=== PATIENT | female | born 1950 | race Caucasian/White ===

== ENCOUNTER 2019-09-11 19:46 | Inpatient (IN) | payer MEDICARE ==
[2019-09-11] MEDS ORDERED: DUONEB 0.5-3 MG/3 ml Neb IH ONE ×3 (19:58→20:03)
[2019-09-11] MEDS ORDERED: Zofran 4 MG/2 ML VIAL IV ONE (20:02)
[2019-09-11] MEDS ORDERED: solu-MEDROL 125 MG IV ONE (20:02)
[2019-09-11] MEDS ORDERED: Zosyn 3.375GM/100 Ml D5W 3.375 GM/100 ML IVPB IV STA (20:02)
--- NOTE | 2019-09-11 20:02 | ERPHSYRPT ---
- History of Present Illness Time Seen by Provider: 09/11/19 19:57 Source: patient, family Exam Limitations: no limitations Physician History: pt is 69 yr old female with COPD who tried to quit smoking by using e cigs but had acute episode 3 weeks ago and completed ab but has gotten worse; no CP but is SOBreath and o2 sat 90 on RA; Timing/Duration: day(s) Activities at Onset: none Severity of Dyspnea-Max: moderate Severity of Dyspnea-Current: moderate Possible Cause: occasional episodes Modifying Factors: Improves With: albuterol nebulizer, oxygen, other ( exacerbation after vaping 3 weeks ago continues) Associated Symptoms: cough, wheezing International travel in last 2 weeks: No Allergies/Adverse Reactions: No Known Drug Allergies Allergy (Unverified 09/11/19 20:08) Home Medications: Amlodipine Besylate 10 mg PO DAILY 09/11/19 [History] Carvedilol 3.125 mg [Coreg 3.125 MG] 3.125 mg PO BID 09/11/19 [History] Famotidine 20 mg PO DAILY 09/11/19 [History] Ferrous Sulfate, Dried [Iron] 65 mg PO DAILY 09/11/19 [History] Gabapentin 300 mg PO TID 09/11/19 [History] Irbesartan/Hydrochlorothiazide [Irbesartan-Hctz 300-12.5 mg Tb] 1 tab PO DAILY 09/11/19 [History] Melatonin 10 mg PO HS 09/11/19 [History] Metformin HCl [Glucophage] 1,000 mg PO BID 09/11/19 [History] Simvastatin 40 mg PO DAILY 09/11/19 [History] Hx Influenza Vaccination/Date Given: Yes - Review of Systems Constitutional: Fever, No Chills Eyes: No Symptoms Ears, Nose, & Throat: No Symptoms Respiratory: Cough, Dyspnea, Wheezing Cardiac: Syncope (three weeks ago - had tx in hosp), No Chest Pain, No Edema Abdominal/Gastrointestinal: No Abdominal Pain, No Nausea, No Vomiting, No Diarrhea Genitourinary Symptoms: No Dysuria Musculoskeletal: No Back Pain, No Neck Pain Skin: No Rash Neurological: No Dizziness, No Focal Weakness, No Sensory Changes Psychological: No Symptoms Endocrine: No Symptoms All Other Systems: Reviewed and Negative - Past Medical History Pertinent Past Medical History: Yes Respiratory History: COPD Endocrine Medical History: Diabetes Type II - Nursing Vital Signs Nursing Vital Signs: Initial Vital Signs Temperature 98 F 09/11/19 19:48 Pulse Rate 83 09/11/19 19:48 Respiratory Rate 26 H 09/11/19 19:48 Blood Pressure 167/88 09/11/19 19:48 O2 Sat by Pulse Oximetry 92 L 09/11/19 19:48 Pain Scale Pain Intensity 0 - Physical Exam General Appearance: mild distress, alert Eye Exam: PERRL/EOMI Neck Exam: normal inspection, supple Respiratory Exam: airway intact, rhonchi, wheezing Cardiovascular/Chest Exam: normal heart sounds, regular rate/rhythm Abdominal/Gastrointestinal Exam: soft, No tenderness, No distention, No mass Extremity Exam: non-tender, normal range of motion, normal inspection, no calf tenderness, no pedal edema Peripheral Pulses Exam: carotid (R): 2+, carotid (L): 2+, femoral (R): 2+, femoral (L): 2+, dorsalis-pedis (R): 2+, dorsalis-pedis (L): 2+ Neurologic Exam: alert, oriented x 3, cooperative, leadership development consultant II-XII nml as tested, sensation nml, No motor deficits Skin Exam: normal color, warm, No dry SpO2 Interpretation: borderline oxygenation SpO2: 90 O2 Delivery: Room Air - Course Nursing assessment & vital signs reviewed: Yes EKG Interpreted by Me: Sinus Rhythm, NORMAL AXIS, NORMAL INTERVALS, Non- specific ST Changes - Radiology Exams Chest X-ray Interpretation: Reviewed by me, Infiltrates, Pneumonia, Other (RML/Rt fluid) Ordered Tests: Active Orders 24 hr Category Date Time Status Central Services Tech STAT Care 09/11/19 20:03 Active EKG-ER Only STAT Care 09/11/19 20:02 Active IV Insertion STAT Care 09/11/19 20:02 Active Oxygen-ED Only Nasal Cannula 2 lpm Care 09/11/19 20:02 Active CHEST 2 VIEWS (PA AND LAT) Stat Exams 09/11/19 20:03 Taken CBC W DIFF Stat Lab 09/11/19 20:24 Completed CMP Stat Lab 09/11/19 20:24 Completed D-DIMER QUANTITATIVE Stat Lab 09/11/19 20:24 Completed NT PRO BNP Stat Lab 09/11/19 20:24 Completed TROPONIN Q3H Lab 09/11/19 20:24 Completed TROPONIN Q3H Lab 09/11/19 23:15 Ordered TROPONIN Q3H Lab 09/12/19 02:15 Ordered TROPONIN Q3H Lab 09/12/19 05:15 Ordered TROPONIN Q3H Lab 09/12/19 08:15 Ordered UA W/RFX UR CULTURE Stat Lab 09/11/19 20:03 Uncollected Peak Expiratory Flow Rate ONCE RT 09/11/19 20:08 Active Respiratory Therapy Assessment DAILY RT 09/11/19 20:07 Active Medication Summary Generic Name Dose Route Start Last Admin Trade Name Freq PRN Reason Stop Dose Admin Sodium Chloride 1,000 mls @ 100 mls/hr 09/11/19 20:15 09/11/19 20:16 Sodium Chloride 0.9% 1000 Ml IV 10/11/19 20:14 100 mls/hr .Q10H ADA Administration Discontinued Medications Generic Name Dose Route Start Last Admin Trade Name Freq PRN Reason Stop Dose Admin Albuterol/Ipratropium Confirm 09/11/19 19:58 Duoneb 0.5-3 Mg/3 Ml Neb Administered 09/11/19 19:59 Dose 3 ml IH .STK-MED ONE Albuterol/Ipratropium 3 ml 09/11/19 20:03 09/11/19 20:04 Duoneb 0.5-3 Mg/3 Ml Neb IH 09/11/19 20:04 3 ml STAT ONE Administration Albuterol/Ipratropium 3 ml 09/11/19 20:02 09/11/19 20:06 Duoneb 0.5-3 Mg/3 Ml Neb IH 09/11/19 20:03 Not Given STAT ONE Piperacillin Sod/Tazobactam Sod 3.375 gm in 100 mls @ 200 mls/hr 09/11/19 20: 02 09/11/19 20:44 Zosyn 3.375gm/100 Ml D5w IV 09/11/19 20:31 Infused STAT STA Infusion Piperacillin Sod/Tazobactam Sod Confirm 09/11/19 20:09 Zosyn 3.375gm/100 Ml D5w Administered 09/11/19 20:10 Dose 3.375 gm in 100 mls @ ud IV .STK-MED ONE Ceftriaxone Sodium/Dextrose 1 g in 50 mls @ 100 mls/hr 09/11/19 21:15 21:20 Rocephin 1 Gm-D5w 50 Ml Bag IV 09/11/19 21:44 100 mls/hr STAT STA 100 mls/hr Administration Ceftriaxone Sodium/Dextrose Confirm 09/11/19 21:18 Rocephin 1 Gm-D5w 50 Ml Bag Administered 09/11/19 21:19 Dose 1 g in 50 mls @ ud IV .STK-MED ONE Methylprednisolone Sodium Succinate 125 mg 09/11/19 20:02 09/11/19 20:17 Solu-Medrol 125 Mg IV 09/11/19 20:03 125 mg STAT ONE Administration Methylprednisolone Sodium Succinate Confirm 09/11/19 20:08 Solu-Medrol 125 Mg Administered 09/11/19 20:09 Dose 125 mg .ROUTE .STK-MED ONE Ondansetron HCl 4 mg 09/11/19 20:02 09/11/19 20:17 Zofran 4 Mg/2 Ml Vial IV 09/11/19 20:03 4 mg STAT ONE Administration Ondansetron HCl Confirm 09/11/19 20:08 Zofran 4 Mg/2 Ml Vial Administered 09/11/19 20:09 Dose 4 mg .ROUTE .STK-MED ONE Lab/Rad Data: Laboratory Result Diagrams 09/11/19 20:24 09/11/19 20:24 Laboratory Results 09/11/19 09/11/19 09/11/19 Range/Units 20:24 20:24 20:24 WBC (4.0-10.5) K/mm3 RBC (4.1-5.4) M/mm3 Hgb (12.0-16.0) gm/dl Hct (35-47) % MCV (78-100) fl MCH (26-32) pg MCHC (32-36) g/dl RDW (11.5-14.0) % Plt Count (150-450) K/mm3 MPV (7.5-11.0) fl Gran % (36.0-66.0) % Eos # (Auto) (0-0.5) Absolute Lymphs (auto) (1.0-4.6) Absolute Monos (auto) (0.0-1.3) Lymphocytes % (24.0-44.0) % Monocytes % (0.0-12.0) % Eosinophils % (0.00-5.0) % Basophils % (0.0-0.4) % Absolute Granulocytes (1.4-6.9) Basophils # (0-0.4) D-Dimer 420 (215-500) ng/mL Sodium (137-145) mmol/L Potassium (3.5-5.1) mmol/L Chloride (98-107) mmol/L Carbon Dioxide (22-30) mmol/L Anion Gap (5-15) MEQ/L BUN (7-17) mg/dL Creatinine (0.52-1.04) mg/dL Estimated GFR ML/MIN Glucose (74-106) mg/dL Calcium (8.4-10.2) mg/dL Total Bilirubin (0.2-1.3) mg/dL AST (14-36) U/L ALT (0-35) U/L Alkaline Phosphatase (38-126) U/L Troponin I < 0.012 (0.000-0.034) ng/mL NT-Pro-B Natriuret Pep (0-900) pg/mL Serum Total Protein (6.3-8.2) g/dL Albumin (3.5-5.0) g/dL Influenza Type A Ag NEGATIVE (NEGATIVE) Influenza Type B Ag NEGATIVE (NEGATIVE) RSV (PCR) NEGATIVE (Negative) Group A Strep Antibody NEGATIVE (NEGATIVE) 09/11/19 09/11/19 Range/Units 20:24 20:24 WBC 8.7 (4.0-10.5) K/mm3 RBC 4.47 (4.1-5.4) M/mm3 Hgb 13.1 (12.0-16.0) gm/dl Hct 40.4 (35-47) % MCV 90.4 (78-100) fl MCH 29.3 (26-32) pg MCHC 32.4 (32-36) g/dl RDW 14.0 (11.5-14.0) % Plt Count 443 (150-450) K/mm3 MPV 10.3 (7.5-11.0) fl Gran % 58.0 (36.0-66.0) % Eos # (Auto) 1.11 H (0-0.5) Absolute Lymphs (auto) 1.72 (1.0-4.6) Absolute Monos (auto) 0.79 (0.0-1.3) Lymphocytes % 19.7 L (24.0-44.0) % Monocytes % 9.1 (0.0-12.0) % Eosinophils % 12.7 H (0.00-5.0) % Basophils % 0.5 (0.0-0.4) % Absolute Granulocytes 5.06 (1.4-6.9) Basophils # 0.04 (0-0.4) D-Dimer (215-500) ng/mL Sodium 134 L (137-145) mmol/L Potassium 4.3 (3.5-5.1) mmol/L Chloride 96 L (98-107) mmol/L Carbon Dioxide 30 (22-30) mmol/L Anion Gap 12.3 (5-15) MEQ/L BUN 14 (7-17) mg/dL Creatinine 0.72 (0.52-1.04) mg/dL Estimated GFR > 60.0 ML/MIN Glucose 193 H (74-106) mg/dL Calcium 9.5 (8.4-10.2) mg/dL Total Bilirubin 0.50 (0.2-1.3) mg/dL AST 18 (14-36) U/L ALT 12 (0-35) U/L Alkaline Phosphatase 87 (38-126) U/L Troponin I (0.000-0.034) ng/mL NT-Pro-B Natriuret Pep 99.5 (0-900) pg/mL Serum Total Protein 8.2 (6.3-8.2) g/dL Albumin 4.7 (3.5-5.0) g/dL Influenza Type A Ag (NEGATIVE) Influenza Type B Ag (NEGATIVE) RSV (PCR) (Negative) Group A Strep Antibody (NEGATIVE) - Progress Progress: improved, re-examined Air Movement: good Progress Note: 09/11/19 22:33 discussed with pt and family and Dr. Kay covering and all agree best to place pt on obs and have O2 and resp Tx and AB in house ; Blood Culture(s) Obtained: No Antibiotics given: Yes Discussed with : Louis Will see patient in: hospital (observation) Counseled pt/family regarding: lab results, diagnosis, need for follow-up, rad results - Departure Departure Disposition: Observation Clinical Impression: RML pneumonia with effusion, Acute exacerbation of chronic obstructive pulmonary disease (COPD) Condition: Good Critical Care Time: No Referrals: GUERRERO WOODARD [Primary Care Provider] - Instructions: Chronic Obstructive Pulmonary Disease
[2019-09-11] MEDS ORDERED: Zofran 4 MG/2 ML VIAL ONE (20:08)
[2019-09-11] MEDS ORDERED: Sodium Chloride 0.9% 1000 ML 1,000 ML ONE (20:08)
[2019-09-11] MEDS ORDERED: solu-MEDROL 125 MG ONE (20:08)
[2019-09-11] MEDS ORDERED: Zosyn 3.375GM/100 Ml D5W 3.375 GM/100 ML IVPB IV ONE (20:09)
[2019-09-11] MEDS ORDERED: Sodium Chloride 0.9% 1000 ML 1,000 ML IV SCH (20:15)
[2019-09-11 20:23] LABS: Absolute Neutrophil Ct (ANC) 5.06 (1.4-6.9); BASOPHIL % 0.5 % (0.0-0.4); Basophil (Absolute #) 0.04 (0-0.4); Eosinophil % 12.7 % (0.00-5.0); Eosinophil (Absolute #) 1.11 (0-0.5); Hematocrit 40.4 % (35-47); Hemoglobin 13.1 gm/dl (12.0-16.0); Lymphocyte (Absolute #) 1.72 (1.0-4.6); Lymphocytes % 19.7 % (24.0-44.0); Mean Cell Volume 90.4 fl (78-100); Mean Corpuscular Hemoglobin 29.3 pg (26-32); Mean Corpuscular Hgb Concent. 32.4 g/dl (32-36); Mean Platelet Volume 10.3 fl (7.5-11.0); Monocyte (Absolute #) 0.79 (0.0-1.3); Monocytes % 9.1 % (0.0-12.0); Platelet Count 443 K/mm3 (150-450); Red Blood Count 4.47 M/mm3 (4.1-5.4); White Blood Count 8.7 K/mm3 (4.0-10.5)
[2019-09-11 20:47] LABS: ALBUMIN 4.7 g/dL (3.5-5.0); ALKALINE PHOSPHATASE 87 U/L (38-126); ANION GAP 12.3 MEQ/L (5-15); BLOOD UREA NITROGEN 14 mg/dL (7-17); CHLORIDE 96 mmol/L (98-107); Calcium 9.5 mg/dL (8.4-10.2); Carbon Dioxide 30 mmol/L (22-30); Creatinine 1 0.72 mg/dL (0.52-1.04); Glucose 193 mg/dL (74-106); NT PRO BNP 99.5 pg/mL (0-900); Potassium 4.3 mmol/L (3.5-5.1); SGOT/AST 18 U/L (14-36); SGPT/ALT 12 U/L (0-35); SODIUM 134 mmol/L (137-145); Total Protein 8.2 g/dL (6.3-8.2)
[2019-09-11] MEDS ORDERED: ROCEPHIN 1 Gm-D5w 50 ml Bag** 1 G/50 ML IVPB IV STA (21:15)
[2019-09-11] MEDS ORDERED: ROCEPHIN 1 Gm-D5w 50 ml Bag** 1 G/50 ML IVPB IV ONE (21:18)
[2019-09-11 21:33] LABS: Group A Strep NEGATIVE (NEGATIVE); INFLUENZA A NEGATIVE (NEGATIVE); INFLUENZA B NEGATIVE (NEGATIVE); RESPIRATORY SYNCTIAL VIRUS NEGATIVE (Negative)
[2019-09-11 22:58] LABS: Appearance CLEAR (CLEAR); Bilirubin NEGATIVE (NEGATIVE); Blood NEGATIVE Ery/ul (0-5); Glucose NEGATIVE (NEGATIVE); Ketones NEGATIVE (NEGATIVE); Leukocyte Esterase NEGATIVE (NEGATIVE); Nitrite NEGATIVE (NEGATIVE); Protein,Urine Dip NEGATIVE (Negative); Specific Gravity 1.009 (1.005-1.025); Urobilinogen NEGATIVE mg/dL (0-1)
[2019-09-11] MEDS ORDERED: Zofran 4 MG/2 ML VIAL IV PRN (23:16)
[2019-09-11] MEDS ORDERED: NovoLIN R SQ PRN (23:16)
[2019-09-11] MEDS: DUONEB 0.5-3 MG/3 ml Neb IH SCH (23:22)
[2019-09-12] MEDS ORDERED: Zosyn 3.375GM/100 Ml D5W 3.375 GM/100 ML IVPB IV SCH
[2019-09-12] MEDS ORDERED: solu-MEDROL 125 MG IV SCH
[2019-09-12] MEDS: Zosyn 3.375GM/100 Ml D5W 3.375 GM/100 ML IVPB IV SCH ×4 (02:31→19:52)
[2019-09-12] MEDS: solu-MEDROL 125 MG IV SCH ×4 (02:31→19:51)
[2019-09-12] MEDS: DUONEB 0.5-3 MG/3 ml Neb IH SCH ×6 (03:31→23:19)
[2019-09-12 04:19] LABS: ALBUMIN 4.4 g/dL (3.5-5.0); ALKALINE PHOSPHATASE 88 U/L (38-126); ANION GAP 12.1 MEQ/L (5-15); BLOOD UREA NITROGEN 14 mg/dL (7-17); CHLORIDE 98 mmol/L (98-107); Calcium 9.2 mg/dL (8.4-10.2); Carbon Dioxide 30 mmol/L (22-30); Creatinine 1 0.58 mg/dL (0.52-1.04); Glucose 276 mg/dL (74-106); Potassium 4.5 mmol/L (3.5-5.1); SGOT/AST 18 U/L (14-36); SGPT/ALT 13 U/L (0-35); SODIUM 135 mmol/L (137-145); Total Protein 7.8 g/dL (6.3-8.2)
[2019-09-12 04:31] LABS: Hematocrit 40.2 % (35-47); Hemoglobin 12.9 gm/dl (12.0-16.0); Mean Cell Volume 90.5 fl (78-100); Mean Corpuscular Hemoglobin 29.1 pg (26-32); Mean Corpuscular Hgb Concent. 32.1 g/dl (32-36); Mean Platelet Volume 10.3 fl (7.5-11.0); Platelet Count 406 K/mm3 (150-450); Red Blood Count 4.44 M/mm3 (4.1-5.4); Red Cell Distribution Width 13.8 % (11.5-14.0); White Blood Count 6.5 K/mm3 (4.0-10.5)
--- NOTE | 2019-09-12 08:05 | XRAY ---
Indication: Short of breath. Comparison: August 23, 2019. PA/lateral chest unchanged again appearing hyperinflated with right midlung subsegmental atelectasis/scarring, focal eventration right hemidiaphragm, and left apical calcified granuloma. Remaining heart and lungs normal. No new/acute findings.
[2019-09-12] MEDS: HUMULIN R SQ PRN ×4 (08:29→22:21)
[2019-09-12] MEDS ORDERED: MEDICATION INTERVENTION PO SCH (10:30)
[2019-09-12] MEDS: FEOSOL 325 MG PO SCH ×2 (11:47→22:19)
[2019-09-12] MEDS: NEURONTIN 300 MG PO SCH ×3 (11:47→22:20)
[2019-09-12] MEDS: Glucophage 500 MG PO SCH ×2 (11:47→17:40)
[2019-09-12] MEDS: Coreg 3.125 MG PO SCH ×2 (11:47→22:18)
[2019-09-12] MEDS: NORVASC 5 MG PO SCH (11:48)
[2019-09-12] MEDS: Pepcid 20 MG PO SCH (11:48)
[2019-09-12] MEDS: ECOTRIN 81 MG PO SCH (11:48)
[2019-09-12] MEDS: ZOCOR 20MG PO SCH (11:48)
--- NOTE | 2019-09-12 13:06 | PCM.HP ---
History of Present Illness - Chief Complaint Chief Complaint: RML PNEUMONIA WITH EFFUSION REQUIRING OXYGEN, COPD EXAC, VAPING INJURY Date: 09/12/19 History of Present Illness: is a 69 year old female that is seen this am following ER admission for acute on chronic COPD exacerbation pleural effusion, pneumonia complicated by e cigarettes. Patient was recently in [facility] for pneumonia and resp distress. She was given steroid shot and started on antibiotics and discharged to home from ER. Patient had follow up with Dr Woodruff who also treated patient for similar symptoms. Patient then was seen by me on Friday. She was given a duoneb in clinic and a steroid shot. I ordered a nebulizer for patient however the script for the duonebs was not at pharmacy. Patient reports she did not realize this till 5pm Friday evening. Patient reports that she got up to go to the bathroom at home and became so short of breath that she had her bring her to ER. Patient reports she has been feeling better since admission. Patient reports that she has been using the e cigarettes for at least the past 6 months but states that she is through with them because of how sick she has been. She reports that she was using the albuterol inhaler but she still was short of breath. Patient denies routine meds at home for COPD. Patient did not report having a PFT test in the past. Patient denies chest pain. She had no other complaints at this time. - Review of Systems Constitutional: No Fever, No Chills Eyes: No Symptoms Ears, Nose, & Throat: No Symptoms Respiratory: Cough, Short Of Breath, Wheezing Cardiac: Edema (R ankle chronically), No Chest Pain Abdominal/Gastrointestinal: No Abdominal Pain, No Nausea, No Vomiting, No Diarrhea, No Constipation Genitourinary Symptoms: No Dysuria Musculoskeletal: No Symptoms Skin: No Symptoms Neurological: No Symptoms Psychological: No Symptoms Medications & Allergies Home Medications: Home Medication List Amlodipine Besylate 10 mg PO DAILY 09/11/19 [History Confirmed 09/11/19] Aspirin EC 81 mg [Ecotrin 81 mg] 81 mg PO DAILY 09/11/19 [History Confirmed 09/12/19] Carvedilol 3.125 mg [Coreg 3.125 MG] 3.125 mg PO BID 09/11/19 [History Confirmed 09/11/19] Famotidine 20 mg PO DAILY 09/11/19 [History Confirmed 09/11/19] Ferrous Sulfate, Dried [Iron] 65 mg PO BID 09/11/19 [History Confirmed 09/11/19] Gabapentin 300 mg PO TID 09/11/19 [History Confirmed 09/11/19] Guaifenesin/Codeine Phos [Guaiatussin AC Liquid] 10 ml PO HS 09/11/19 [History Confirmed 09/11/19] Irbesartan/Hydrochlorothiazide [Irbesartan-Hctz 300-12.5 mg Tb] 1 tab PO HS [History Confirmed 09/12/19] Melatonin 10 mg PO HS 09/11/19 [History Confirmed 09/11/19] Metformin HCl [Glucophage] 1,000 mg PO BIDWMEALS 09/11/19 [History Confirmed ] Simvastatin 40 mg PO DAILY 09/11/19 [History Confirmed 09/11/19] Allergies/Adverse Reactions: Allergies Allergy/AdvReac Type Severity Reaction Status Date / Time No Known Drug Allergies Allergy Unverified 09/11/19 20:08 - Past Medical History Past Medical History: Yes Neurological History: Peripheral Neuropathy ENT History: No Pertinent History Cardiac History: High Cholesterol, Hypertension, Other Respiratory History: COPD Endocrine Medical History: Diabetes Type II Musculoskelatal History: No Pertinent History GI Medical History: GERD History: No Pertinent History Pyscho-Social History: No Pertinent History Reproductive Disorders: No Pertinent History Comment: anemia - Female History Are you now?: No - Past Surgical History Past Surgical History: Yes Neuro Surgical History: No Pertinent History Cardiac History: No Pertinent History Respiratory Surgery: No Pertinent History GI Surgical History: No Pertinent History Genitourinary Surgical Hx: No Pertinent History Musculskeletal Surgical Hx: Orthopedic Surgery Female Surgical History: No Pertinent History Other Surgical History: plates in rt ankle - Social History Smoking Status: Former smoker Exposure to second hand smoke: No Alcohol: Weekly Drug Use: none - Physical Exam Vital Signs: Vital Signs - 24 hr Temp Pulse Resp BP Pulse Ox 09/12/19 11:13 87 18 93 L 09/12/19 07:19 97.5 F 85 18 143/82 93 L 09/12/19 07:11 74 18 95 09/12/19 04:00 97.2 F 88 18 165/77 91 L 09/12/19 03:33 88 23 91 L 09/11/19 23:25 72 20 93 L 09/11/19 23:21 97.9 F 72 18 143/82 93 L 09/11/19 22:52 72 18 141/86 96 09/11/19 22:37 90 L 09/11/19 22:00 76 18 124/82 96 09/11/19 20:24 76 20 126/94 95 09/11/19 20:08 81 22 97 09/11/19 19:48 98 F 83 18 167/88 99 General Appearance: mild distress Neurologic Exam: alert, oriented x 3, cooperative, normal mood/affect Eye Exam: eyes nml inspection Ears, Nose, Throat Exam: moist mucous membranes Neck Exam: normal inspection Respiratory Exam: diminished breath sounds, crackles/rales, wheezing, No normal breath sounds, No lungs clear Cardiovascular Exam: regular rate/rhythm, normal heart sounds, edema (R ankle chonic in nature +1 non pitting), No murmur, No friction rub, No gallop Gastrointestinal/Abdomen Exam: soft, normal bowel sounds, No tenderness, No distention Pelvic Exam: not done Rectal Exam: not done Extremity Exam: normal inspection, pedal edema (R ankle) Skin Exam: normal color, warm, dry, No rash Results - Labs Lab/Micro Results: Accuchecks Date 09/12/19 Date 09/12/19 Time 08:02 Time 08:02 Accucheck Value: 241 Lab Results-Last 24 Hours 09/11/19 09/11/19 09/11/19 Range/Units 20:24 20:24 20:24 WBC 8.7 (4.0-10.5) K/mm3 RBC 4.47 (4.1-5.4) M/mm3 Hgb 13.1 (12.0-16.0) gm/dl Hct 40.4 (35-47) % MCV 90.4 (78-100) fl MCH 29.3 (26-32) pg MCHC 32.4 (32-36) g/dl RDW 14.0 (11.5-14.0) % Plt Count 443 (150-450) K/mm3 MPV 10.3 (7.5-11.0) fl Gran % 58.0 (36.0-66.0) % Eos # (Auto) 1.11 H (0-0.5) Absolute Lymphs (auto) 1.72 (1.0-4.6) Absolute Monos (auto) 0.79 (0.0-1.3) Lymphocytes % 19.7 L (24.0-44.0) % Monocytes % 9.1 (0.0-12.0) % Eosinophils % 12.7 H (0.00-5.0) % Basophils % 0.5 (0.0-0.4) % Absolute Granulocytes 5.06 (1.4-6.9) Basophils # 0.04 (0-0.4) D-Dimer 420 (215-500) ng/mL Sodium 134 L (137-145) mmol/L Potassium 4.3 (3.5-5.1) mmol/L Chloride 96 L (98-107) mmol/L Carbon Dioxide 30 (22-30) mmol/L Anion Gap 12.3 (5-15) MEQ/L BUN 14 (7-17) mg/dL Creatinine 0.72 (0.52-1.04) mg/dL Estimated GFR > 60.0 ML/MIN Glucose 193 H (74-106) mg/dL Hemoglobin A1c (4.5-6.0) % Calcium 9.5 (8.4-10.2) mg/dL Total Bilirubin 0.50 (0.2-1.3) mg/dL AST 18 (14-36) U/L ALT 12 (0-35) U/L Alkaline Phosphatase 87 (38-126) U/L Troponin I (0.000-0.034) ng/mL NT-Pro-B Natriuret Pep 99.5 (0-900) pg/mL Serum Total Protein 8.2 (6.3-8.2) g/dL Albumin 4.7 (3.5-5.0) g/dL Urine Color (YELLOW) Urine Appearance (CLEAR) Urine pH (5-6) Ur Specific [place] (1.005-1.025) Urine Protein (Negative) Urine Ketones (NEGATIVE) Urine Blood (0-5) Monster/ul Urine Nitrite (NEGATIVE) Urine Bilirubin (NEGATIVE) Urine Urobilinogen (0-1) mg/dL Ur Leukocyte Esterase (NEGATIVE) Urine WBC (Auto) (0-5) /HPF Urine RBC (Auto) (0-2) /HPF U Epithel Cells (Auto) (FEW) /HPF Urine Bacteria (Auto) (NEGATIVE) /HPF Urine Culture Reflexed (NO) Urine Glucose (NEGATIVE) mg/dL Influenza Type A Ag (NEGATIVE) Influenza Type B Ag (NEGATIVE) RSV (PCR) (Negative) Group A Strep Antibody (NEGATIVE) 09/11/19 09/11/19 09/11/19 Range/Units 20:24 20:24 22:52 WBC (4.0-10.5) K/mm3 RBC (4.1-5.4) M/mm3 Hgb (12.0-16.0) gm/dl Hct (35-47) % MCV (78-100) fl MCH (26-32) pg MCHC (32-36) g/dl RDW (11.5-14.0) % Plt Count (150-450) K/mm3 MPV (7.5-11.0) fl Gran % (36.0-66.0) % Eos # (Auto) (0-0.5) Absolute Lymphs (auto) (1.0-4.6) Absolute Monos (auto) (0.0-1.3) Lymphocytes % (24.0-44.0) % Monocytes % (0.0-12.0) % Eosinophils % (0.00-5.0) % Basophils % (0.0-0.4) % Absolute Granulocytes (1.4-6.9) Basophils # (0-0.4) D-Dimer (215-500) ng/mL Sodium (137-145) mmol/L Potassium (3.5-5.1) mmol/L Chloride (98-107) mmol/L Carbon Dioxide (22-30) mmol/L Anion Gap (5-15) MEQ/L BUN (7-17) mg/dL Creatinine (0.52-1.04) mg/dL Estimated GFR ML/MIN Glucose (74-106) mg/dL Hemoglobin A1c (4.5-6.0) % Calcium (8.4-10.2) mg/dL Total Bilirubin (0.2-1.3) mg/dL AST (14-36) U/L ALT (0-35) U/L Alkaline Phosphatase (38-126) U/L Troponin I < 0.012 (0.000-0.034) ng/mL NT-Pro-B Natriuret Pep (0-900) pg/mL Serum Total Protein (6.3-8.2) g/dL Albumin (3.5-5.0) g/dL Urine Color YELLOW (YELLOW) Urine Appearance CLEAR (CLEAR) Urine pH 7.0 (5-6) Ur Specific [place] 1.009 (1.005-1.025) Urine Protein NEGATIVE (Negative) Urine Ketones NEGATIVE (NEGATIVE) Urine Blood NEGATIVE (0-5) Monster/ul Urine Nitrite NEGATIVE (NEGATIVE) Urine Bilirubin NEGATIVE (NEGATIVE) Urine Urobilinogen NEGATIVE (0-1) mg/dL Ur Leukocyte Esterase NEGATIVE (NEGATIVE) Urine WBC (Auto) NONE (0-5) /HPF Urine RBC (Auto) NONE (0-2) /HPF U Epithel Cells (Auto) NONE (FEW) /HPF Urine Bacteria (Auto) NONE (NEGATIVE) /HPF Urine Culture Reflexed NO (NO) Urine Glucose NEGATIVE (NEGATIVE) mg/dL Influenza Type A Ag NEGATIVE (NEGATIVE) Influenza Type B Ag NEGATIVE (NEGATIVE) RSV (PCR) NEGATIVE (Negative) Group A Strep Antibody NEGATIVE (NEGATIVE) 09/11/19 09/12/19 09/12/19 Range/Units 23:43 04:02 04:02 WBC 6.5 (4.0-10.5) K/mm3 RBC 4.44 (4.1-5.4) M/mm3 Hgb 12.9 (12.0-16.0) gm/dl Hct 40.2 (35-47) % MCV 90.5 (78-100) fl MCH 29.1 (26-32) pg MCHC 32.1 (32-36) g/dl RDW 13.8 (11.5-14.0) % Plt Count 406 (150-450) K/mm3 MPV 10.3 (7.5-11.0) fl Gran % (36.0-66.0) % Eos # (Auto) (0-0.5) Absolute Lymphs (auto) (1.0-4.6) Absolute Monos (auto) (0.0-1.3) Lymphocytes % (24.0-44.0) % Monocytes % (0.0-12.0) % Eosinophils % (0.00-5.0) % Basophils % (0.0-0.4) % Absolute Granulocytes (1.4-6.9) Basophils # (0-0.4) D-Dimer (215-500) ng/mL Sodium (137-145) mmol/L Potassium (3.5-5.1) mmol/L Chloride (98-107) mmol/L Carbon Dioxide (22-30) mmol/L Anion Gap (5-15) MEQ/L BUN (7-17) mg/dL Creatinine (0.52-1.04) mg/dL Estimated GFR ML/MIN Glucose (74-106) mg/dL Hemoglobin A1c (4.5-6.0) % Calcium (8.4-10.2) mg/dL Total Bilirubin (0.2-1.3) mg/dL AST (14-36) U/L ALT (0-35) U/L Alkaline Phosphatase (38-126) U/L Troponin I < 0.012 < 0.012 (0.000-0.034) ng/mL NT-Pro-B Natriuret Pep (0-900) pg/mL Serum Total Protein (6.3-8.2) g/dL Albumin (3.5-5.0) g/dL Urine Color (YELLOW) Urine Appearance (CLEAR) Urine pH (5-6) Ur Specific [place] (1.005-1.025) Urine Protein (Negative) Urine Ketones (NEGATIVE) Urine Blood (0-5) Monster/ul Urine Nitrite (NEGATIVE) Urine Bilirubin (NEGATIVE) Urine Urobilinogen (0-1) mg/dL Ur Leukocyte Esterase (NEGATIVE) Urine WBC (Auto) (0-5) /HPF Urine RBC (Auto) (0-2) /HPF U Epithel Cells (Auto) (FEW) /HPF Urine Bacteria (Auto) (NEGATIVE) /HPF Urine Culture Reflexed (NO) Urine Glucose (NEGATIVE) mg/dL Influenza Type A Ag (NEGATIVE) Influenza Type B Ag (NEGATIVE) RSV (PCR) (Negative) Group A Strep Antibody (NEGATIVE) 09/12/19 09/12/19 09/12/19 Range/Units 04:02 07:20 10:00 WBC (4.0-10.5) K/mm3 RBC (4.1-5.4) M/mm3 Hgb (12.0-16.0) gm/dl Hct (35-47) % MCV (78-100) fl MCH (26-32) pg MCHC (32-36) g/dl RDW (11.5-14.0) % Plt Count (150-450) K/mm3 MPV (7.5-11.0) fl Gran % (36.0-66.0) % Eos # (Auto) (0-0.5) Absolute Lymphs (auto) (1.0-4.6) Absolute Monos (auto) (0.0-1.3) Lymphocytes % (24.0-44.0) % Monocytes % (0.0-12.0) % Eosinophils % (0.00-5.0) % Basophils % (0.0-0.4) % Absolute Granulocytes (1.4-6.9) Basophils # (0-0.4) D-Dimer (215-500) ng/mL Sodium 135 L (137-145) mmol/L Potassium 4.5 (3.5-5.1) mmol/L Chloride 98 (98-107) mmol/L Carbon Dioxide 30 (22-30) mmol/L Anion Gap 12.1 (5-15) MEQ/L BUN 14 (7-17) mg/dL Creatinine 0.58 (0.52-1.04) mg/dL Estimated GFR > 60.0 ML/MIN Glucose 276 H (74-106) mg/dL Hemoglobin A1c (4.5-6.0) % Calcium 9.2 (8.4-10.2) mg/dL Total Bilirubin 0.50 (0.2-1.3) mg/dL AST 18 (14-36) U/L ALT 13 (0-35) U/L Alkaline Phosphatase 88 (38-126) U/L Troponin I < 0.012 < 0.012 (0.000-0.034) ng/mL NT-Pro-B Natriuret Pep (0-900) pg/mL Serum Total Protein 7.8 (6.3-8.2) g/dL Albumin 4.4 (3.5-5.0) g/dL Urine Color (YELLOW) Urine Appearance (CLEAR) Urine pH (5-6) Ur Specific [place] (1.005-1.025) Urine Protein (Negative) Urine Ketones (NEGATIVE) Urine Blood (0-5) Monster/ul Urine Nitrite (NEGATIVE) Urine Bilirubin (NEGATIVE) Urine Urobilinogen (0-1) mg/dL Ur Leukocyte Esterase (NEGATIVE) Urine WBC (Auto) (0-5) /HPF Urine RBC (Auto) (0-2) /HPF U Epithel Cells (Auto) (FEW) /HPF Urine Bacteria (Auto) (NEGATIVE) /HPF Urine Culture Reflexed (NO) Urine Glucose (NEGATIVE) mg/dL Influenza Type A Ag (NEGATIVE) Influenza Type B Ag (NEGATIVE) RSV (PCR) (Negative) Group A Strep Antibody (NEGATIVE) 09/12/19 Range/Units 10:15 WBC (4.0-10.5) K/mm3 RBC (4.1-5.4) M/mm3 Hgb (12.0-16.0) gm/dl Hct (35-47) % MCV (78-100) fl MCH (26-32) pg MCHC (32-36) g/dl RDW (11.5-14.0) % Plt Count (150-450) K/mm3 MPV (7.5-11.0) fl Gran % (36.0-66.0) % Eos # (Auto) (0-0.5) Absolute Lymphs (auto) (1.0-4.6) Absolute Monos (auto) (0.0-1.3) Lymphocytes % (24.0-44.0) % Monocytes % (0.0-12.0) % Eosinophils % (0.00-5.0) % Basophils % (0.0-0.4) % Absolute Granulocytes (1.4-6.9) Basophils # (0-0.4) D-Dimer (215-500) ng/mL Sodium (137-145) mmol/L Potassium (3.5-5.1) mmol/L Chloride (98-107) mmol/L Carbon Dioxide (22-30) mmol/L Anion Gap (5-15) MEQ/L BUN (7-17) mg/dL Creatinine (0.52-1.04) mg/dL Estimated GFR ML/MIN Glucose (74-106) mg/dL Hemoglobin A1c 6.89 H (4.5-6.0) % Calcium (8.4-10.2) mg/dL Total Bilirubin (0.2-1.3) mg/dL AST (14-36) U/L ALT (0-35) U/L Alkaline Phosphatase (38-126) U/L Troponin I (0.000-0.034) ng/mL NT-Pro-B Natriuret Pep (0-900) pg/mL Serum Total Protein (6.3-8.2) g/dL Albumin (3.5-5.0) g/dL Urine Color (YELLOW) Urine Appearance (CLEAR) Urine pH (5-6) Ur Specific [place] (1.005-1.025) Urine Protein (Negative) Urine Ketones (NEGATIVE) Urine Blood (0-5) Monster/ul Urine Nitrite (NEGATIVE) Urine Bilirubin (NEGATIVE) Urine Urobilinogen (0-1) mg/dL Ur Leukocyte Esterase (NEGATIVE) Urine WBC (Auto) (0-5) /HPF Urine RBC (Auto) (0-2) /HPF U Epithel Cells (Auto) (FEW) /HPF Urine Bacteria (Auto) (NEGATIVE) /HPF Urine Culture Reflexed (NO) Urine Glucose (NEGATIVE) mg/dL Influenza Type A Ag (NEGATIVE) Influenza Type B Ag (NEGATIVE) RSV (PCR) (Negative) Group A Strep Antibody (NEGATIVE) Accuchecks Date 09/12/19 Date 09/12/19 Time 08:02 Time 08:02 Accucheck Value: 241 - Radiology Impressions Radiology Exams & Impressions: Radiology Procedures Category Date Time Status CHEST 2 VIEWS (PA AND LAT) Stat Exams 09/11/19 20:03 Completed - Other Procedures and Tests Respiratory Therapy 09/11/19 23:16 Oxygen Nasal Cannula 2 lpm 09/11/19 23:25 Peak Expiratory Flow Rate ONCE 09/11/19 23:32 Respiratory Therapy Assessment DAILY Assessment/Plan (1) Pneumonia Current Visit: Yes Status: Acute Assessment & Plan: Patient has had pneumonia that was treated a few weeks ago and then still is present on exam. Patient is currently on IV antibiotics. Will consider possible follow up chest xray to see if it has resolved even though it is not necessarily recommended guidelines. Code(s): J18.9 - PNEUMONIA, UNSPECIFIED ORGANISM (2) Pleural effusion Current Visit: Yes Status: Acute Assessment & Plan: Patient has pleural effusion on imaging unsure if related to pneumonia or contamination/injury from e cigarettes. Patient will be getting tx for pneumonia. Patient is on IV antibiotics at this time. Code(s): J90 - PLEURAL EFFUSION, NOT ELSEWHERE CLASSIFIED (3) Acute exacerbation of chronic obstructive pulmonary disease (COPD) Current Visit: Yes Status: Acute Assessment & Plan: Patient is requiring oxygen 2 L which is not her baseline. She likely needs to have a PFT when she is better and will need to be started on maintenance inhaler on discharge. Code(s): J44.1 - CHRONIC OBSTRUCTIVE PULMONARY DISEASE W (ACUTE) EXACERBATION (4) Respiratory distress Current Visit: Yes Status: Acute Code(s): R06.03 - ACUTE RESPIRATORY DISTRESS (5) HTN (hypertension) Current Visit: Yes Status: Acute Assessment & Plan: Will resume home meds Code(s): I10 - ESSENTIAL (PRIMARY) HYPERTENSION (6) GERD (gastroesophageal reflux disease) Current Visit: Yes Status: Acute Assessment & Plan: Will resume home meds Code(s): K21.9 - GASTRO-ESOPHAGEAL REFLUX DISEASE WITHOUT ESOPHAGITIS (7) Hyperlipidemia Current Visit: Yes Status: Acute Assessment & Plan: Resume home meds Code(s): E78.5 - HYPERLIPIDEMIA, UNSPECIFIED
[2019-09-12] MEDS ORDERED: CODEINE PHOS PO SCH (22:00)
[2019-09-12] MEDS ORDERED: GUAIFENESIN PO SCH (22:00)
[2019-09-12] MEDS ORDERED: NON-FORMULARY ITEM (Melatonin [Melatonin] 10 MG) PO SCH (22:00)
[2019-09-12] MEDS ORDERED: HYDROCHLOROTHIAZIDE PO SCH (22:00)
[2019-09-12] MEDS ORDERED: [UNRECOGNIZED DRUG - OTHER] PO SCH (22:00)
[2019-09-12] MEDS ORDERED: IRBESARTAN PO SCH (22:00)
[2019-09-12] MEDS: Avapro 150 MG PO SCH (22:17)
[2019-09-12] MEDS: hydroDIURIL 25 MG PO SCH (22:17)
[2019-09-12] MEDS: Mucinex 600MG ER Tabs PO SCH (22:19)
[2019-09-12] MEDS: Robitussin AC Syrup Unit Dose Cup PO SCH (22:21)
[2019-09-12] MEDS ORDERED: MEDICATION INTERVENTION PO PRN (22:25)
[2019-09-13] MEDS: solu-MEDROL 125 MG IV SCH ×4 (01:22→19:44)
[2019-09-13] MEDS: Zosyn 3.375GM/100 Ml D5W 3.375 GM/100 ML IVPB IV SCH ×4 (01:23→19:45)
[2019-09-13] MEDS: DUONEB 0.5-3 MG/3 ml Neb IH SCH ×6 (05:09→22:39)
[2019-09-13] MEDS: Pepcid 20 MG PO SCH (08:26)
[2019-09-13] MEDS: Coreg 3.125 MG PO SCH ×2 (08:26→21:17)
[2019-09-13] MEDS: FEOSOL 325 MG PO SCH ×2 (08:26→21:17)
[2019-09-13] MEDS: Mucinex 600MG ER Tabs PO SCH ×2 (08:26→21:18)
[2019-09-13] MEDS: Glucophage 500 MG PO SCH ×2 (08:26→16:32)
[2019-09-13] MEDS: ECOTRIN 81 MG PO SCH (08:27)
[2019-09-13] MEDS: NORVASC 5 MG PO SCH (08:27)
[2019-09-13] MEDS: NEURONTIN 300 MG PO SCH ×3 (08:27→21:17)
[2019-09-13] MEDS: ZOCOR 20MG PO SCH (08:34)
[2019-09-13] MEDS: HUMULIN R SQ PRN ×4 (08:34→21:19)
--- NOTE | 2019-09-13 08:45 | PCM.NOTE ---
Date and Time: 09/13/19 0842 Subjective Assessment: Pt is feeling better than at admission. Enio po. - Review of Systems Constitutional: No Fever Respiratory: Cough Objective Exam General Appearance: no apparent distress, alert Neurologic Exam: oriented x 3, cooperative Skin Exam: normal color, warm, dry, No rash Ears, Nose, Throat Exam: moist mucous membranes Neck Exam: normal inspection Respiratory Exam: diminished breath sounds, rhonchi (RLL), No crackles/rales, No wheezing Cardiovascular Exam: regular rate/rhythm, normal heart sounds, No murmur Extremity Exam: No pedal edema, No swelling Back Exam: normal inspection, No rash OBJECTIVE DATA Vital Signs: Vital Signs - 24 hr Temp Pulse Resp BP Pulse Ox 09/13/19 07:49 97.8 F 76 18 143/74 94 L 09/13/19 06:58 76 20 94 L 09/13/19 04:00 97.8 F 70 20 127/69 95 09/12/19 23:38 98.1 F 89 18 121/59 96 09/12/19 23:22 88 19 96 09/12/19 20:00 98.1 F 93 H 20 115/57 94 L 09/12/19 19:04 98 H 18 95 09/12/19 16:00 98.1 F 83 18 123/58 94 L 09/12/19 15:02 81 20 96 09/12/19 12:00 98.4 F 79 18 129/60 93 L 09/12/19 11:13 87 18 93 L Pain Assessment - Last Documented Pain Intensity 0 Pain Scale Used 0-10 Pain Scale,FLACC Intake and Output: Intake & Output 09/10/19 09/11/19 09/12/19 09/13/19 11:59 11:59 11:59 11:59 Intake Total 996 1992 Output Total 600 1800 Balance 396 192 Weight 80.7 kg 81.5 kg Lab Results: Accuchecks Date 09/12/19 Date 09/12/19 Date 09/12/19 Time 21:30 Time 17:49 Time 08:02 Accucheck Value: 330 Accucheck Value: 257 Accucheck Value: 241 Lab Results-Last 24 Hours 09/12/19 09/12/19 Range/Units 10:00 10:15 Hemoglobin A1c 6.89 H (4.5-6.0) % Troponin I < 0.012 (0.000-0.034) ng/mL Radiology Exams: Radiology Procedures Category Date Time Status CHEST 2 VIEWS (PA AND LAT) Stat Exams 09/11/19 20:03 Completed Assessment/Plan (1) Pneumonia Current Visit: Yes Status: Acute Qualifiers: Pneumonia type: due to unspecified organism Laterality: right Lung location: lower lobe of lung Qualified Code(s): J18.9 - Pneumonia, unspecified organism Assessment & Plan: Clinically. on day #2 zosyn today. Has improved somewhat, but still has O2 requirement of 2L NC (not on O2 usually) and desats when up moving around per RN. Code(s): J18.9 - PNEUMONIA, UNSPECIFIED ORGANISM (2) Acute exacerbation of chronic obstructive pulmonary disease (COPD) Current Visit: Yes Status: Acute Code(s): J44.1 - CHRONIC OBSTRUCTIVE PULMONARY DISEASE W (ACUTE) EXACERBATION (3) GERD (gastroesophageal reflux disease) Current Visit: Yes Status: Acute Code(s): K21.9 - GASTRO-ESOPHAGEAL REFLUX DISEASE WITHOUT ESOPHAGITIS (4) HTN (hypertension) Current Visit: Yes Status: Chronic Qualifiers: Hypertension type: essential hypertension Qualified Code(s): I10 - Essential (primary) hypertension Code(s): I10 - ESSENTIAL (PRIMARY) HYPERTENSION (5) Hyperlipidemia Current Visit: Yes Status: Chronic Code(s): E78.5 - HYPERLIPIDEMIA, UNSPECIFIED
[2019-09-13] MEDS: Avapro 150 MG PO SCH (21:15)
[2019-09-13] MEDS: hydroDIURIL 25 MG PO SCH (21:17)
[2019-09-13] MEDS: Robitussin AC Syrup Unit Dose Cup PO SCH (21:17)
[2019-09-13] MEDS: PATIENT OWN MEDICATION PO SCH (21:18)
[2019-09-14] MEDS: DUONEB 0.5-3 MG/3 ml Neb IH SCH ×6 (03:08→22:59)
[2019-09-14] MEDS: solu-MEDROL 125 MG IV SCH ×2 (03:16→07:49)
[2019-09-14] MEDS: Zosyn 3.375GM/100 Ml D5W 3.375 GM/100 ML IVPB IV SCH ×4 (03:16→20:20)
[2019-09-14] MEDS: HUMULIN R SQ PRN ×4 (07:53→21:35)
[2019-09-14] MEDS: Glucophage 500 MG PO SCH ×2 (07:53→17:47)
--- NOTE | 2019-09-14 08:49 | PCM.NOTE ---
Date and Time: 09/14/19 0847 Subjective Assessment: Pt is feeling better. Unable to cough anything up. Enio po. - Review of Systems Constitutional: No Fever Respiratory: Cough Objective Exam General Appearance: no apparent distress, alert Neurologic Exam: oriented x 3, cooperative Skin Exam: normal color, warm, dry, No rash Ears, Nose, Throat Exam: moist mucous membranes Respiratory Exam: lungs clear, diminished breath sounds (fair to good air exchange), No crackles/rales, No rhonchi, No wheezing Cardiovascular Exam: regular rate/rhythm, normal heart sounds, No murmur Extremity Exam: No swelling, No tenderness Back Exam: normal inspection, No rash OBJECTIVE DATA Vital Signs: Vital Signs - 24 hr Temp Pulse Resp BP Pulse Ox 09/14/19 06:20 70 16 95 09/14/19 06:00 95 09/14/19 04:00 97.6 F 68 16 143/78 94 L 09/14/19 03:09 66 18 96 09/14/19 00:00 97.6 F 81 18 126/64 96 09/13/19 22:40 72 18 95 09/13/19 19:50 98.6 F 82 20 125/58 95 09/13/19 16:23 97.6 F 83 18 132/63 95 09/13/19 14:32 76 20 94 L 09/13/19 12:21 97.7 F 73 20 141/72 96 09/13/19 10:26 76 18 96 Pain Assessment - Last Documented Pain Intensity 0 Pain Scale Used 0-10 Pain Scale Intake and Output: Intake & Output 09/11/19 09/12/19 09/13/19 09/14/19 11:59 11:59 11:59 11:59 Intake Total 996 2352 2022 Output Total 600 1800 850 Balance 590 830 4709 Weight 80.7 kg 81.5 kg Lab Results: Accuchecks Date 09/13/19 Date 09/13/19 Time 16:30 Time 13:34 Accucheck Value: 241 Accucheck Value: 355 Accucheck Value: 237 Accucheck Value: 329 Assessment/Plan (1) Pneumonia Current Visit: Yes Status: Acute Qualifiers: Pneumonia type: due to unspecified organism Laterality: right Lung location: lower lobe of lung Qualified Code(s): J18.9 - Pneumonia, unspecified organism Assessment & Plan: Improved exam; will start decreasing her steroid. Decrease O2 as tolerated. Code(s): J18.9 - PNEUMONIA, UNSPECIFIED ORGANISM (2) Acute exacerbation of chronic obstructive pulmonary disease (COPD) Current Visit: Yes Status: Acute Code(s): J44.1 - CHRONIC OBSTRUCTIVE PULMONARY DISEASE W (ACUTE) EXACERBATION (3) GERD (gastroesophageal reflux disease) Current Visit: Yes Status: Acute Code(s): K21.9 - GASTRO-ESOPHAGEAL REFLUX DISEASE WITHOUT ESOPHAGITIS (4) HTN (hypertension) Current Visit: Yes Status: Chronic Qualifiers: Hypertension type: essential hypertension Qualified Code(s): I10 - Essential (primary) hypertension Code(s): I10 - ESSENTIAL (PRIMARY) HYPERTENSION (5) Hyperlipidemia Current Visit: Yes Status: Chronic Code(s): E78.5 - HYPERLIPIDEMIA, UNSPECIFIED
[2019-09-14] MEDS: Pepcid 20 MG PO SCH (09:40)
[2019-09-14] MEDS: NORVASC 5 MG PO SCH (09:40)
[2019-09-14] MEDS: FEOSOL 325 MG PO SCH ×2 (09:40→20:58)
[2019-09-14] MEDS: ZOCOR 20MG PO SCH (09:40)
[2019-09-14] MEDS: Mucinex 600MG ER Tabs PO SCH ×2 (09:40→20:58)
[2019-09-14] MEDS: Coreg 3.125 MG PO SCH ×2 (09:41→20:58)
[2019-09-14] MEDS: NEURONTIN 300 MG PO SCH ×3 (09:41→20:58)
[2019-09-14] MEDS: ENOXAPARIN SODIUM SQ SCH (10:07)
[2019-09-14] MEDS: ECOTRIN 81 MG PO SCH (10:07)
[2019-09-14] MEDS: solu-MEDROL 40 MG IV SCH ×2 (14:25→20:55)
[2019-09-14] MEDS: Robitussin AC Syrup Unit Dose Cup PO SCH (20:55)
[2019-09-14] MEDS: Avapro 150 MG PO SCH (20:57)
[2019-09-14] MEDS: hydroDIURIL 25 MG PO SCH (20:59)
[2019-09-14] MEDS: PATIENT OWN MEDICATION PO SCH (21:57)
[2019-09-15] MEDS: Zosyn 3.375GM/100 Ml D5W 3.375 GM/100 ML IVPB IV SCH ×2 (02:16→08:23)
[2019-09-15] MEDS: DUONEB 0.5-3 MG/3 ml Neb IH SCH ×2 (03:30→07:12)
[2019-09-15] MEDS: solu-MEDROL 40 MG IV SCH (05:47)
[2019-09-15] MEDS: Glucophage 500 MG PO SCH (08:23)
[2019-09-15] MEDS: Coreg 3.125 MG PO SCH (08:23)
[2019-09-15] MEDS: NORVASC 5 MG PO SCH (08:23)
[2019-09-15] MEDS: ZOCOR 20MG PO SCH (08:24)
[2019-09-15] MEDS: ECOTRIN 81 MG PO SCH (08:24)
[2019-09-15] MEDS: Pepcid 20 MG PO SCH (08:25)
[2019-09-15] MEDS: ENOXAPARIN SODIUM SQ SCH (08:25)
[2019-09-15] MEDS: Mucinex 600MG ER Tabs PO SCH (08:25)
[2019-09-15] MEDS: FEOSOL 325 MG PO SCH (08:25)
[2019-09-15] MEDS: NEURONTIN 300 MG PO SCH (08:25)
[2019-09-15] MEDS: hydroDIURIL 25 MG PO SCH (08:27)
[2019-09-15 08:46] VITALS: PULSE 68; O2SAT 93
--- NOTE | 2019-09-15 08:50 | PCM.DS ---
Discharge Summary Date of Admission: 09/12/19 13:05 Admitting Physician: ARYA OLGUIN MD Primary Care Provider: GUERRERO WOODARD Allergies Allergies No Known Drug Allergies Allergy (Unverified 09/11/19 20:08) Hospital Summary - Hospital Course Hospital Course: Pt is 69 yo female pt of mine from [facility] with COPD, DM, and HTN who was admitted through the ER with pneumonia after having been seen outpatient. She was started on duonebs, IV steroid, and IV zosyn. She was on O2 per NC until yesterday at noon and has been off oxygen since then. She is feeling good, antonio po well, and would like to be discharged to home. She does have a nebulizer machine. Will f/u with me in office in 1 week. - Vitals & Intake/Output Vital Signs: Vital Signs Temperature 98.1 F 09/15/19 03:59 Pulse Rate 67 09/15/19 07:15 Respiratory Rate 18 09/15/19 07:15 Blood Pressure 146/77 09/15/19 03:59 O2 Sat by Pulse Oximetry 92 L 09/15/19 07:15 Intake & Output: Intake & Output 09/12/19 09/13/19 09/14/19 09/15/19 11:59 11:59 11:59 11:59 Intake Total 996 2352 2502 920 Output Total 600 1800 850 Balance 595 560 9426 920 Weight 80.7 kg 81.5 kg 82.2 kg 82.2 kg - Lab Result Diagrams: 09/12/19 04:02 09/12/19 04:02 Lab Results-Last 24 Hrs: Accuchecks Date 09/14/19 Time 20:00 Accucheck Value: 221 Accucheck Value: 272 Accucheck Value: 266 Micro Results-Entire Visit: Accuchecks Date 09/14/19 Time 20:00 Accucheck Value: 221 Accucheck Value: 272 Accucheck Value: 266 - Procedures and Test Procedures and Tests throughout Hospitalization: Therapy Orders & Screens 09/11/19 20:07 Respiratory Therapy Assessment DAILY Comment: 09/11/19 20:08 Peak Expiratory Flow Rate ONCE Comment: Reason For Exam: 09/11/19 23:16 Oxygen Nasal Cannula 2 lpm Comment: Respiratory Therapy Consult ROUTINE Comment: Reason For Exam: 09/11/19 23:25 Peak Expiratory Flow Rate ONCE Comment: Reason For Exam: 09/11/19 23:32 Respiratory Therapy Assessment DAILY Comment: 09/11/19 23:51 RT Screen per Nursing Assess ONCE Comment: Protocol Order Physician Instructions: Greater than 3 points order RT Admission Screen Reason For Exam: Triggered on Admission Diagnosis: RML PNEUMONIA WITH EFFUSION REQUIRING OXYGEN, COPD EXAC, VAPING INJURY Diagnosis: RML PNEUMONIA WITH EFFUSION REQUIRING OXYGEN, COPD EXAC, VAPING INJURY Pneumonia: Yes Home O2: No Asthma: No CHF: No Home CPAP/BIPAP: No Home Nebs/MDI: Yes: HAS NEB, NO MEDS Total Points: 8 09/14/19 08:54 RT Miscellaneous Order ROUTINE Comment: Physician Instructions: Reason For Exam: WEAN OFF OXYGEN Diagnosis: RML PNEUMONIA WITH EFFUSION REQUIRING OXYGEN, COPD EXAC, VAPING INJURY Discharge Exam General Appearance: no apparent distress, alert Neurologic Exam: oriented x 3, cooperative Eye Exam: eyes nml inspection Ears, Nose, Throat Exam: moist mucous membranes Neck Exam: normal inspection Respiratory Exam: normal breath sounds, lungs clear, No crackles/rales, No rhonchi, No wheezing Cardiovascular Exam: regular rate/rhythm, normal heart sounds, murmur (I/ sys murmur) Back Exam: normal inspection, No rash Extremity Exam: normal inspection, No pedal edema, No swelling Skin Exam: normal color, warm, dry, No rash Final Diagnosis/Problem List - Final Discharge Diagnosis/Problem (1) Pneumonia Current Visit: Yes Status: Acute Assessment & Plan: Much improved. Home on po augmentin and steroid x 7d. Duonebs QID x 3-4d then BID x 3-4d then stop. Code(s): J18.9 - PNEUMONIA, UNSPECIFIED ORGANISM (2) Acute exacerbation of chronic obstructive pulmonary disease (COPD) Current Visit: Yes Status: Acute Code(s): J44.1 - CHRONIC OBSTRUCTIVE PULMONARY DISEASE W (ACUTE) EXACERBATION (3) GERD (gastroesophageal reflux disease) Current Visit: Yes Status: Acute Code(s): K21.9 - GASTRO-ESOPHAGEAL REFLUX DISEASE WITHOUT ESOPHAGITIS (4) HTN (hypertension) Current Visit: Yes Status: Chronic Code(s): I10 - ESSENTIAL (PRIMARY) HYPERTENSION (5) Hyperlipidemia Current Visit: Yes Status: Chronic Code(s): E78.5 - HYPERLIPIDEMIA, UNSPECIFIED - Discharge Disposition: Home, Self-Care Condition: Good Prescriptions: New Amox Tr/Potass Clav. 875 mg [Augmentin 875-125 Tablet] 875 mg PO BID # 20 tablet Prednisone 20 mg [Deltasone 20 mg] 20 mg PO DAILY #17 tablet Albuterol/Ipratropium 3ml Neb* [DUONEB 0.5-3 MG/3 ml Neb] 3 ml IH QID #30 ampul.neb Guaifenesin 600 mg ER [Mucinex 600MG ER Tabs] 1,200 mg PO BID tablet Continue Irbesartan/Hydrochlorothiazide [Irbesartan-Hctz 300-12.5 mg Tb] 1 tab PO HS Simvastatin 40 mg PO DAILY Metformin HCl [Glucophage] 1,000 mg PO BIDWMEALS Ferrous Sulfate, Dried [Iron] 65 mg PO BID Amlodipine Besylate 10 mg PO DAILY Carvedilol 3.125 mg [Coreg 3.125 MG] 3.125 mg PO BID Melatonin 10 mg PO HS Gabapentin 300 mg PO TID Famotidine 20 mg PO DAILY Aspirin EC 81 mg [Ecotrin 81 mg] 81 mg PO DAILY Changed Guaifenesin/Codeine Phos [Guaiatussin AC Liquid] 10 ml PO HS PRN 5 Days #4 oz PRN Reason: Cough Follow up with: GUERRERO WOODARD [Primary Care Provider] - 1 Week
[2019-09-15 09:43] VITALS: BP 172/79
== END 2019-09-15 09:50 | disposition home or self-care (01) | DRG 194 ==
LOC: ED 19:46 → MED SURG 23:09 → OBSVTOIN 09-12 13:05
PROVIDERS: ADMIT Family Medicine; ATTEND Family Medicine
DX: J18.9 Pneumonia, unspecified organism (principal); J44.1 Chronic obstructive pulmonary disease with (acute) exacerbation; E11.9 Type 2 diabetes mellitus without complications; I10 Essential (primary) hypertension; K21.9 Gastro-esophageal reflux disease without esophagitis; R06.02 Shortness of breath; F17.290 Nicotine dependence, other tobacco product, uncomplicated; R06.03 Acute respiratory distress; E78.5 Hyperlipidemia, unspecified; E87.5 Hyperkalemia
CPT/HCPCS: 36000; 36415; 71046; 80053; 81001; 82962; 83036; 83880; 84484; 85025; 85027; 85379; 87631; 87651; 93005; 93041; 93268; 94150; 94640; 94760; 94762; 96365; 96367; 96374; 96375; 99285; G0378; J0696; J1650; J1815; J2405; J2543; J2920; J2930; A9270-GY

== ENCOUNTER 2023-06-02 02:31 | Observation (INO) | payer MEDICARE ==
[2023-06-02] MEDS ORDERED: DUONEB 0.5-3 MG/3 ml Neb IH ONE ×4 (02:51→03:55)
[2023-06-02 03:38] LABS: Absolute Neutrophil Ct (ANC) 8.18 x10^3/uL (1.4-6.9); BASOPHIL % 0.6 % (0.0-0.4); Basophil (Absolute #) 0.07 x10^3/uL (0-0.4); Eosinophil % 7.9 % (0.00-5.0); Hematocrit 44.2 % (35-47); Hemoglobin 14.2 g/dL (12.0-16.0); IMMATURE GRAN # 0.04 x10^3u/L (0.00-0.03); IMMATURE GRAN % 0.3 % (0.00-0.4); Lymphocyte (Absolute #) 1.39 x10^3/uL (1.0-4.6); Lymphocytes % 12.2 % (24.0-44.0); Mean Cell Volume 94.6 fL (78-100); Mean Corpuscular Hemoglobin 30.4 pg (26-32); Mean Corpuscular Hgb Concent. 32.1 g/dL (32-36); Mean Platelet Volume 9.9 fL (7.5-11.0); Monocyte (Absolute #) 0.85 x10^3/uL (0.0-1.3); Monocytes % 7.4 % (0.0-12.0); Neutrophil % 71.6 % (36.0-66.0); Platelet Count 404 x10^3/uL (150-450); Red Blood Count 4.67 x10^6/uL (4.1-5.4); Red Cell Distribution Width 12.4 % (11.5-14.0); White Blood Count 11.4 x10^3/uL (4.0-10.5)
[2023-06-02] MEDS ORDERED: Zithromax 500 MG/ 250 ML NaCl Premix 500 MG/250 ML IVPB IV STA (03:51)
[2023-06-02] MEDS ORDERED: ROCEPHIN 2 Gm-D5w 50ML BAG** 2 G/50 ML IVPB IV STA (03:51)
[2023-06-02 03:57] LABS: ALBUMIN 4.7 g/dL (3.5-5.0); ANION GAP 15.1 MEQ/L (5-15); BILIRUBIN,TOTAL 0.5 mg/dL (0.2-1.3); Calcium 9.9 mg/dL (8.4-10.2); Creatinine 1 0.67 mg/dL (0.52-1.04); EST GLOMERULAR FILTRATION RATE 91.7 ML/MIN; MAGNESIUM 1.7 mg/dL (1.6-2.3); Potassium 4.3 mmol/L (3.5-5.1); Total Protein 8.1 g/dL (6.3-8.2)
[2023-06-02] MEDS ORDERED: solu-MEDROL 125 MG, Sterile H2O 10 ml 2 ML IV ONE ×2 (03:58)
[2023-06-02] MEDS ORDERED: ROCEPHIN 2 Gm-D5w 50ML BAG** 2 G/50 ML IVPB IV ONE (03:59)
[2023-06-02] MEDS ORDERED: Sterile H2O 10 ml IJ ONE (04:02)
[2023-06-02] MEDS ORDERED: solu-MEDROL ONE (04:02)
--- NOTE | 2023-06-02 04:02 | ERPHSYRPT ---
- History of Present Illness Time Seen by Provider: 06/02/23 03:08 Source: patient Exam Limitations: no limitations Patient Subjective Stated Complaint: flu like symptoms since friday, increased shortness of breath since friday, no fever, hx of COPD Triage Nursing Assessment: pt ambulatory to bed by self with steady gait, pt alert and oriented x3, skin pwd, pt c/o increased shortness of breath since friday, pt has hx of COPD, audible wheezes head upon inspiratory breathing, pt afebrile, pt was 90% on RA and placed on 2 L NC upon arrival and currently sating 97% with the 2LNC Physician History: 73 years old female with a history of hypertension, hyperlipidemia, COPD, diabetes mellitus presented in the ER with chief complaint of increasing shortness of breath for the last 2 to 3 days with progressive worsening. Patient reports coughing up clear yellow sputum and since yesterday having increasing wheezing and chest tightness causing some difficulty breathing especially with activities. Denies any fever or chills. No known sick contact. Patient oxygen saturation is around 90% on room air with resting, placed on 2 L oxygen and improved in upper 90s. He is given DuoNeb on presentation feeling better but still having wheezing. EKG is sinus rhythm with few PVCs. No ST elevations. Chest x-ray showed right- sided airspace disease. I have given her Solu-Medrol as well. Started on Rocephin and Zithromax. Work-up showed white count 11, fairly unremarkable chemistries. Negative initial troponins. I believe patient has COPD exacerbation, would benefit with steroids, frequent neb treatments and IV antibiotics. Discussed with hospitalist and patient is being admitted. Allergies/Adverse Reactions: No Known Drug Allergies Allergy (Verified 06/02/23 02:34) Home Medications: Amlodipine Besylate 10 mg PO DAILY 09/11/19 [History] Aspirin EC 81 mg [Ecotrin 81 mg] 81 mg PO DAILY 09/11/19 [History] Carvedilol 3.125 mg [Coreg 3.125 MG] 3.125 mg PO BID 09/11/19 [History] Famotidine 20 mg PO BID 09/11/19 [History] Irbesartan/Hydrochlorothiazide [Irbesartan-Hctz 300-12.5 mg Tb] 1 tab PO HS 09/11/19 [History] Metformin HCl [Glucophage] 1,000 mg PO BIDWMEALS 09/11/19 [History] Simvastatin 40 mg PO DAILY 09/11/19 [History] Furosemide [Lasix] 20 mg PO DAILY 06/02/23 [History] Glimepiride 1 mg PO DAILY 06/02/23 [History] Omeprazole 20 mg PO DAILY 06/02/23 [History] Oxybutynin Chloride [Oxybutynin Chloride ER] 10 mg PO DAILY 06/02/23 [History] Potassium Chloride [Klor-Con 10] 10 meq PO DAILY 06/02/23 [History] Hx Tetanus, Diphtheria Vaccination/Date Given: Yes Hx Influenza Vaccination/Date Given: Yes Hx Pneumococcal Vaccination/Date Given: Yes Immunizations Up to Date: Yes Travel Risk - International Travel Have you traveled outside of the country in past 3 weeks: No - Coronavirus Screening Are you exhibiting any of the following symptoms?: Yes Symptoms: Cough: New Onset, Shortness of Breath, Headaches/Body Aches/Fatigue Close contact with a COVID-19 positive Pt in past 14-21 Days: No - Vaccine Status Have you recieved a Covid-19 vaccination: Yes 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[employer] - Vaccination Dates Date of 2cond Vaccination (if applicable): 2020 - Review of Systems Constitutional: No Symptoms Eyes: No Symptoms Ears, Nose, & Throat: No Symptoms Respiratory: Cough, Dyspnea, Dyspnea on Exertion ([place]), Wheezing Cardiac: No Symptoms Abdominal/Gastrointestinal: No Symptoms Genitourinary Symptoms: No Symptoms Neurological: No Symptoms Endocrine: No Symptoms Hematologic/Lymphatic: No Symptoms - Past Medical History Pertinent Past Medical History: Yes Neurological History: Peripheral Neuropathy ENT History: No Pertinent History Cardiac History: High Cholesterol, Hypertension, Other Respiratory History: COPD Endocrine Medical History: Diabetes Type II Musculoskeletal History: No Pertinent History GI Medical History: GERD History: No Pertinent History Psycho-Social History: No Pertinent History Female Reproductive Disorders: No Pertinent History Other Medical History: anemia - Past Surgical History Past Surgical History: Yes Neuro Surgical History: No Pertinent History Cardiac: No Pertinent History Respiratory: No Pertinent History Gastrointestinal: No Pertinent History Genitourinary: No Pertinent History Musculoskeletal: Orthopedic Surgery Female Surgical History: No Pertinent History Other Surgical History: plates in rt ankle, R hip replacement - Social History Smoking Status: Former smoker Exposure to second hand smoke: No Drug Use: none Patient Lives Alone: No - Nursing Vital Signs Nursing Vital Signs: Initial Vital Signs Temperature 97.6 F 06/02/23 02:38 Pulse Rate 83 06/02/23 02:38 Respiratory Rate 21 06/02/23 02:38 Blood Pressure 217/109 06/02/23 02:38 O2 Sat by Pulse Oximetry 96 06/02/23 02:38 Pain Scale Pain Intensity 0 - Physical Exam General Appearance: no apparent distress, alert Eye Exam: PERRL/EOMI Ears, Nose, Throat Exam: hearing grossly normal Neck Exam: normal inspection, non-tender, supple, full range of motion Respiratory Exam: diminished breath sounds, rhonchi, wheezing Cardiovascular/Chest Exam: normal heart sounds, regular rate/rhythm Abdominal/Gastrointestinal Exam: soft, normal bowel sounds, No tenderness Extremity Exam: non-tender, normal range of motion Neurologic Exam: alert, oriented x 3, cooperative Skin Exam: normal color SpO2 Interpretation: O2 applied SpO2: 93 O2 Delivery: Nasal Cannula (2 L) - Course EKG Interpreted by Me: RATE (85), Sinus Rhythm, NORMAL AXIS, Non-specific ST Changes, Other (PVCs) Ordered Tests: Active Orders 24 hr Category Date Time Status CHEST 1 VIEW (PORTABLE) Stat Exams 06/02/23 02:56 Taken BLOOD CULTURE Stat Lab 06/02/23 03:51 Ordered CBC W DIFF Stat Lab 06/02/23 03:35 Completed CMP Stat Lab 06/02/23 03:35 Completed Lactic Acid Stat Lab 06/02/23 03:20 Completed MAGNESIUM Stat Lab 06/02/23 03:35 Completed NT PRO BNPII Stat Lab 06/02/23 03:35 Received TROPONIN Q4H Lab 06/02/23 03:35 Completed TROPONIN Q4H Lab 06/02/23 07:15 Ordered TROPONIN Q4H Lab 06/02/23 11:15 Ordered Respiratory Therapy Assessment DAILY RT 06/02/23 02:56 Active Medication Summary Generic Name Dose Route Start Last Admin Trade Name Freq PRN Reason Stop Dose Admin Azithromycin 500 mg in 250 mls @ 250 mls/hr 06/02/23 03:51 Zithromax 500 Mg/ 250 Ml Nacl Premix IV 06/02/23 04:50 STAT STA Discontinued Medications Generic Name Dose Route Start Last Admin Trade Name Freq PRN Reason Stop Dose Admin Albuterol/Ipratropium Confirm 06/02/23 02:51 Ipratropium/Albuterol Sulfate 3 Ml Ampul.Neb Administered 06/02/23 02:52 Dose 3 ml IH .STK-MED ONE Albuterol/Ipratropium 3 ml 06/02/23 02:55 06/02/23 02:56 Ipratropium/Albuterol Sulfate 3 Ml Ampul.Neb IH 06/02/23 02:56 3 ml STAT ONE Administration Albuterol/Ipratropium Confirm 06/02/23 03:51 Ipratropium/Albuterol Sulfate 3 Ml Ampul.Neb Administered 06/02/23 03:52 Dose 3 ml IH .STK-MED ONE Albuterol/Ipratropium 3 ml 06/02/23 03:55 06/02/23 03:56 Ipratropium/Albuterol Sulfate 3 Ml Ampul.Neb IH 06/02/23 03:56 3 ml STAT ONE Administration Methylprednisolone Sodium 0 mg 06/02/23 03:58 06/02/23 04:03 Succinate 125 mg/ Sterile IV 06/02/23 03:59 125 mg Water 2 ml STAT ONE Administration Ceftriaxone Sodium/Dextrose 2 g in 50 mls @ 100 mls/hr 06/02/23 03:51 06/02/23 04:01 Rocephin 2 Gm-D5w 50ml Bag IV 06/02/23 04:20 100 mls/hr STAT STA 100 mls/hr Administration Ceftriaxone Sodium/Dextrose Confirm 06/02/23 03:59 Rocephin 2 Gm-D5w 50ml Bag Administered 06/02/23 04:00 Dose 2 g in 50 mls @ ud IV .STK-MED ONE Methylprednisolone Sodium Succinate Confirm 06/02/23 04:02 Methylprednis Sod Succ 125 Mg/2 Ml Vial Administered 06/02/23 04:03 Dose 125 mg .ROUTE .STK-MED ONE Sterile Water Confirm 06/02/23 04:02 Water For Injection,Sterile 10 Ml Vial Administered 06/02/23 04:03 Dose 10 ml IJ .STK-MED ONE Lab/Rad Data: Laboratory Result Diagrams 06/02/23 03:35 06/02/23 03:35 Laboratory Results 06/02/23 06/02/23 06/02/23 Range/Units 03:35 03:35 03:35 WBC (4.0-10.5) x10^3/uL RBC (4.1-5.4) x10^6/uL Hgb (12.0-16.0) g/dL Hct (35-47) % MCV (78-100) fL MCH (26-32) pg MCHC (32-36) g/dL RDW (11.5-14.0) % Plt Count (150-450) x10^3/uL MPV (7.5-11.0) fL Gran % (36.0-66.0) % Immature Gran % (Auto) (0.00-0.4) % Nucleat RBC Rel Count (0.00-0.1) % Eos # (Auto) (0-0.5) x10^3/uL Immature Gran # (Auto) (0.00-0.03) x10^3u/L Absolute Lymphs (auto) (1.0-4.6) x10^3/uL Absolute Monos (auto) (0.0-1.3) x10^3/uL Absolute Nucleated RBC (0.00-0.01) x10^3u/L Lymphocytes % (24.0-44.0) % Monocytes % (0.0-12.0) % Eosinophils % (0.00-5.0) % Basophils % (0.0-0.4) % Absolute Granulocytes (1.4-6.9) x10^3/uL Basophils # (0-0.4) x10^3/uL Sodium 133 L (137-145) mmol/L Potassium 4.3 (3.5-5.1) mmol/L Chloride 97 L (98-107) mmol/L Carbon Dioxide 26 (22-30) mmol/L Anion Gap 15.1 H (5-15) MEQ/L BUN 9 (7-17) mg/dL Creatinine 0.67 (0.52-1.04) mg/dL Estimated GFR 91.7 ML/MIN Glucose 202 H (74-106) mg/dL Lactic Acid (0.4-2.0) Calcium 9.9 (8.4-10.2) mg/dL Magnesium 1.7 (1.6-2.3) mg/dL Total Bilirubin 0.50 (0.2-1.3) mg/dL AST 22 (14-36) U/L ALT 17 (0-35) U/L Alkaline Phosphatase 96 (38-126) U/L Troponin I < 0.012 (0.000-0.034) ng/mL Serum Total Protein 8.1 (6.3-8.2) g/dL Albumin 4.7 (3.5-5.0) g/dL Influenza Type A Ag NEGATIVE (NEGATIVE) Influenza Type B Ag NEGATIVE (NEGATIVE) RSV (PCR) NEGATIVE (NEGATIVE) SARS-CoV-2 (PCR) NEGATIVE (NEGATIVE) 06/02/23 06/02/23 Range/Units 03:35 03:20 WBC 11.4 H (4.0-10.5) x10^3/uL RBC 4.67 (4.1-5.4) x10^6/uL Hgb 14.2 (12.0-16.0) g/dL Hct 44.2 (35-47) % MCV 94.6 (78-100) fL MCH 30.4 (26-32) pg MCHC 32.1 (32-36) g/dL RDW 12.4 (11.5-14.0) % Plt Count 404 (150-450) x10^3/uL MPV 9.9 (7.5-11.0) fL Gran % 71.6 H (36.0-66.0) % Immature Gran % (Auto) 0.3 (0.00-0.4) % Nucleat RBC Rel Count 0.0 (0.00-0.1) % Eos # (Auto) 0.90 H (0-0.5) x10^3/uL Immature Gran # (Auto) 0.04 H (0.00-0.03) x10^3u/L Absolute Lymphs (auto) 1.39 (1.0-4.6) x10^3/uL Absolute Monos (auto) 0.85 (0.0-1.3) x10^3/uL Absolute Nucleated RBC 0.00 (0.00-0.01) x10^3u/L Lymphocytes % 12.2 L (24.0-44.0) % Monocytes % 7.4 (0.0-12.0) % Eosinophils % 7.9 H (0.00-5.0) % Basophils % 0.6 (0.0-0.4) % Absolute Granulocytes 8.18 H (1.4-6.9) x10^3/uL Basophils # 0.07 (0-0.4) x10^3/uL Sodium (137-145) mmol/L Potassium (3.5-5.1) mmol/L Chloride (98-107) mmol/L Carbon Dioxide (22-30) mmol/L Anion Gap (5-15) MEQ/L BUN (7-17) mg/dL Creatinine (0.52-1.04) mg/dL Estimated GFR ML/MIN Glucose (74-106) mg/dL Lactic Acid 1.5 (0.4-2.0) Calcium (8.4-10.2) mg/dL Magnesium (1.6-2.3) mg/dL Total Bilirubin (0.2-1.3) mg/dL AST (14-36) U/L ALT (0-35) U/L Alkaline Phosphatase (38-126) U/L Troponin I (0.000-0.034) ng/mL Serum Total Protein (6.3-8.2) g/dL Albumin (3.5-5.0) g/dL Influenza Type A Ag (NEGATIVE) Influenza Type B Ag (NEGATIVE) RSV (PCR) (NEGATIVE) SARS-CoV-2 (PCR) (NEGATIVE) - Progress Progress: improved, re-examined Air Movement: good Progress Note: 06/02/23 04:29 73 years old female with a history of hypertension, hyperlipidemia, COPD, diabetes mellitus presented in the ER with chief complaint of increasing shortness of breath for the last 2 to 3 days with progressive worsening. Patient reports coughing up clear yellow sputum and since yesterday having increasing wheezing and chest tightness causing some difficulty breathing especially with activities. Denies any fever or chills. No known sick contact. Patient oxygen saturation is around 90% on room air with resting, placed on 2 L oxygen and improved in upper 90s. He is given DuoNeb on presentation feeling better but still having wheezing. EKG is sinus rhythm with few PVCs. No ST elevations. Chest x-ray showed right- sided airspace disease. I have given her Solu-Medrol as well. Started on Rocephin and Zithromax. Work-up showed white count 11, fairly unremarkable chemistries. Negative initial troponins. I believe patient has COPD exacerbation, would benefit with steroids, frequent neb treatments and IV antibiotics. Discussed with hospitalist and patient is being admitted. Blood Culture(s) Obtained: Yes Antibiotics given: Yes Discussed with : Arianna Will see patient in: hospital (observation) Counseled pt/family regarding: lab results, diagnosis, rad results Medical Desision Making - Independent Historian Additional History obtained from: Spouse - Discussion of managment Care discussed with:: hospitalist Reviewed:: Test results Agreed on:: Treatment plan, place in obs Will see patient: in hospital - Diagnostic Testing Diagnostic test were ordered, analyzed, and reviewed by me: Yes Radiological Interpretation: Interpreted by me, Reviewed by me - Risk of complications The pt has a high risk of morbidity or mortality based on: Decision regarding hospitilization or escalation of hosp level of care - Departure Departure Disposition: Observation Clinical Impression: Acute exacerbation of chronic obstructive pulmonary disease (COPD) Condition: Stable Critical Care Time: No Referrals: NIYA GONZALEZ DO [Primary Care Provider] - Follow up/PCP as directed Instructions: Chronic Obstructive Pulmonary Disease
[2023-06-02 04:14] LABS: INFLUENZA A NEGATIVE (NEGATIVE); INFLUENZA B NEGATIVE (NEGATIVE); RESPIRATORY SYNCTIAL VIRUS NEGATIVE (NEGATIVE); SARS-CoV-2 Xpert Express NEGATIVE (NEGATIVE)
[2023-06-02] MEDS ORDERED: Zithromax 500 MG/ 250 ML NaCl Premix 500 MG/250 ML IVPB IV ONE (04:33)
[2023-06-02] MEDS ORDERED: TYLENOL 325 MG PO PRN (05:07)
--- NOTE | 2023-06-02 05:18 | PCM.HP ---
History of Present Illness - Chief Complaint Chief Complaint: COPD exacerbation History of Present Illness: is a 73 year old female with history of DMII, HTN, HLP, and COPD came in with c/o flu-like symptoms, cough with yellow sputum, and wheezing with SOB since Friday. Her O2 sat was found to be 90% on RA, improved to 96% on 2Ls NC. She denies fever or chills, nausea, vomiting nor diarrhea. No chest pain, orthopnea, palpitation. Denies syncope Now admitted for COPD exacerbation. I am seeing her via telemedicine. She is resting comfortably on 2Ls NC O2. Has no additional complaint for me - Review of Systems Constitutional: No Symptoms Eyes: No Symptoms Ears, Nose, & Throat: No Symptoms Respiratory: Cough, Short Of Breath, Wheezing Cardiac: No Symptoms Abdominal/Gastrointestinal: No Symptoms Genitourinary Symptoms: No Symptoms Musculoskeletal: No Symptoms Skin: No Symptoms Neurological: No Symptoms Psychological: No Symptoms Endocrine: No Symptoms Hematologic/Lymphatic: No Symptoms Immunological/Allergic: No Symptoms Medications & Allergies Home Medications: Home Medication List Amlodipine Besylate 10 mg PO DAILY 09/11/19 [History Confirmed 06/02/23] Aspirin EC 81 mg [Ecotrin 81 mg] 81 mg PO DAILY 09/11/19 [History Confirmed 06/02/23] Carvedilol 3.125 mg [Coreg 3.125 MG] 3.125 mg PO BID 09/11/19 [History Confirmed 06/02/23] Famotidine 20 mg PO BID 09/11/19 [History Confirmed 06/02/23] Irbesartan/Hydrochlorothiazide [Irbesartan-Hctz 300-12.5 mg Tb] 1 tab PO HS 09/11/19 [History Confirmed 06/02/23] Metformin HCl [Glucophage] 1,000 mg PO BIDWMEALS 09/11/19 [History Confirmed 06/02/23] Simvastatin 40 mg PO DAILY 09/11/19 [History Confirmed 06/02/23] Furosemide [Lasix] 20 mg PO DAILY 06/02/23 [History Confirmed 06/02/23] Glimepiride 1 mg PO DAILY 06/02/23 [History Confirmed 06/02/23] Omeprazole 20 mg PO DAILY 06/02/23 [History Confirmed 06/02/23] Oxybutynin Chloride [Oxybutynin Chloride ER] 10 mg PO DAILY 06/02/23 [History Confirmed 06/02/23] Potassium Chloride [Klor-Con 10] 10 meq PO DAILY 06/02/23 [History Confirmed 06/02/23] Allergies/Adverse Reactions: Allergies Allergy/AdvReac Type Severity Reaction Status Date / Time No Known Drug Allergies Allergy Verified 06/02/23 02:34 - Past Medical History Past Medical History: Yes Neurological History: Peripheral Neuropathy ENT History: No Pertinent History Cardiac History: High Cholesterol, Hypertension, Other Respiratory History: COPD Endocrine Medical History: Diabetes Type II Musculoskelatal History: No Pertinent History GI Medical History: GERD History: No Pertinent History Pyscho-Social History: No Pertinent History Reproductive Disorders: No Pertinent History Comment: anemia - Past Surgical History Past Surgical History: Yes Neuro Surgical History: No Pertinent History Cardiac History: No Pertinent History Respiratory Surgery: No Pertinent History GI Surgical History: No Pertinent History Genitourinary Surgical Hx: No Pertinent History Musculskeletal Surgical Hx: Orthopedic Surgery Female Surgical History: No Pertinent History Other Surgical History: plates in rt ankle, R hip replacement - Social History Smoking Status: Former smoker Exposure to second hand smoke: No Alcohol: Daily Drug Use: none Significant Family History: no pertinent family hx - Physical Exam Vital Signs: Vital Signs - 24 hr Temp Pulse Resp BP BP Pulse Ox 06/02/23 05:00 82 21 162/98 95 06/02/23 04:30 93 L 06/02/23 04:00 80 20 159/129 94 L 06/02/23 03:56 79 17 91 L 06/02/23 03:24 14 93 L 06/02/23 03:03 87 17 168/100 93 L 06/02/23 02:56 80 18 96 06/02/23 02:38 97.6 F 83 21 217/109 96 General Appearance: no apparent distress Neurologic Exam: alert, oriented x 3, cooperative, normal mood/affect Eye Exam: PERRL/EOMI, eyes nml inspection Ears, Nose, Throat Exam: normal ENT inspection Neck Exam: normal inspection, supple, full range of motion Respiratory Exam: diminished breath sounds, wheezing Cardiovascular Exam: regular rate/rhythm, normal heart sounds Gastrointestinal/Abdomen Exam: soft, normal bowel sounds Pelvic Exam: deferred Rectal Exam: deferred Back Exam: normal inspection Extremity Exam: normal inspection Skin Exam: normal color, warm, dry Results - Labs Lab/Micro Results: Lab Results-Last 24 Hours 06/02/23 06/02/23 06/02/23 Range/Units 03:20 03:35 03:35 WBC 11.4 H (4.0-10.5) x10^3/uL RBC 4.67 (4.1-5.4) x10^6/uL Hgb 14.2 (12.0-16.0) g/dL Hct 44.2 (35-47) % MCV 94.6 (78-100) fL MCH 30.4 (26-32) pg MCHC 32.1 (32-36) g/dL RDW 12.4 (11.5-14.0) % Plt Count 404 (150-450) x10^3/uL MPV 9.9 (7.5-11.0) fL Gran % 71.6 H (36.0-66.0) % Immature Gran % (Auto) 0.3 (0.00-0.4) % Nucleat RBC Rel Count 0.0 (0.00-0.1) % Eos # (Auto) 0.90 H (0-0.5) x10^3/uL Immature Gran # (Auto) 0.04 H (0.00-0.03) x10^3u/L Absolute Lymphs (auto) 1.39 (1.0-4.6) x10^3/uL Absolute Monos (auto) 0.85 (0.0-1.3) x10^3/uL Absolute Nucleated RBC 0.00 (0.00-0.01) x10^3u/L Lymphocytes % 12.2 L (24.0-44.0) % Monocytes % 7.4 (0.0-12.0) % Eosinophils % 7.9 H (0.00-5.0) % Basophils % 0.6 (0.0-0.4) % Absolute Granulocytes 8.18 H (1.4-6.9) x10^3/uL Basophils # 0.07 (0-0.4) x10^3/uL Sodium 133 L (137-145) mmol/L Potassium 4.3 (3.5-5.1) mmol/L Chloride 97 L (98-107) mmol/L Carbon Dioxide 26 (22-30) mmol/L Anion Gap 15.1 H (5-15) MEQ/L BUN 9 (7-17) mg/dL Creatinine 0.67 (0.52-1.04) mg/dL Estimated GFR 91.7 ML/MIN Glucose 202 H (74-106) mg/dL Lactic Acid 1.5 (0.4-2.0) Calcium 9.9 (8.4-10.2) mg/dL Magnesium 1.7 (1.6-2.3) mg/dL Total Bilirubin 0.50 (0.2-1.3) mg/dL AST 22 (14-36) U/L ALT 17 (0-35) U/L Alkaline Phosphatase 96 (38-126) U/L Troponin I (0.000-0.034) ng/mL NT-Pro-B Natriuret Pep (<300) pg/mL Serum Total Protein 8.1 (6.3-8.2) g/dL Albumin 4.7 (3.5-5.0) g/dL Influenza Type A Ag (NEGATIVE) Influenza Type B Ag (NEGATIVE) RSV (PCR) (NEGATIVE) SARS-CoV-2 (PCR) (NEGATIVE) 06/02/23 06/02/23 06/02/23 Range/Units 03:35 03:35 03:35 WBC (4.0-10.5) x10^3/uL RBC (4.1-5.4) x10^6/uL Hgb (12.0-16.0) g/dL Hct (35-47) % MCV (78-100) fL MCH (26-32) pg MCHC (32-36) g/dL RDW (11.5-14.0) % Plt Count (150-450) x10^3/uL MPV (7.5-11.0) fL Gran % (36.0-66.0) % Immature Gran % (Auto) (0.00-0.4) % Nucleat RBC Rel Count (0.00-0.1) % Eos # (Auto) (0-0.5) x10^3/uL Immature Gran # (Auto) (0.00-0.03) x10^3u/L Absolute Lymphs (auto) (1.0-4.6) x10^3/uL Absolute Monos (auto) (0.0-1.3) x10^3/uL Absolute Nucleated RBC (0.00-0.01) x10^3u/L Lymphocytes % (24.0-44.0) % Monocytes % (0.0-12.0) % Eosinophils % (0.00-5.0) % Basophils % (0.0-0.4) % Absolute Granulocytes (1.4-6.9) x10^3/uL Basophils # (0-0.4) x10^3/uL Sodium (137-145) mmol/L Potassium (3.5-5.1) mmol/L Chloride (98-107) mmol/L Carbon Dioxide (22-30) mmol/L Anion Gap (5-15) MEQ/L BUN (7-17) mg/dL Creatinine (0.52-1.04) mg/dL Estimated GFR ML/MIN Glucose (74-106) mg/dL Lactic Acid (0.4-2.0) Calcium (8.4-10.2) mg/dL Magnesium (1.6-2.3) mg/dL Total Bilirubin (0.2-1.3) mg/dL AST (14-36) U/L ALT (0-35) U/L Alkaline Phosphatase (38-126) U/L Troponin I < 0.012 (0.000-0.034) ng/mL NT-Pro-B Natriuret Pep 84.4 (<300) pg/mL Serum Total Protein (6.3-8.2) g/dL Albumin (3.5-5.0) g/dL Influenza Type A Ag NEGATIVE (NEGATIVE) Influenza Type B Ag NEGATIVE (NEGATIVE) RSV (PCR) NEGATIVE (NEGATIVE) SARS-CoV-2 (PCR) NEGATIVE (NEGATIVE) - Radiology Impressions Radiology Exams & Impressions: Radiology Procedures Category Date Time Status CHEST 1 VIEW (PORTABLE) Stat Exams 06/02/23 02:56 Taken - Other Procedures and Tests Respiratory Therapy 06/02/23 02:56 Respiratory Therapy Assessment DAILY 06/02/23 05:07 Oxygen Nasal Cannula 2 lpm Assessment/Plan (1) Acute exacerbation of chronic obstructive pulmonary disease (COPD) Current Visit: Yes Status: Acute Assessment & Plan: CAme in SOB, wheezing, O2 sat 90%. CXR shows right air-space opacity. Starting solumedrol 80mg every 8hrs, Rocephin 1gm and Azithromycin 500mg daily, albuterol nebs/updraft every 6 hrs and as needed, O2 protocol to keep O2 sat > 92%. Flu and covid negative Code(s): J44.1 - CHRONIC OBSTRUCTIVE PULMONARY DISEASE W (ACUTE) EXACERBATION (2) Leukocytosis Current Visit: Yes Status: Acute Assessment & Plan: WBC mildly elevated at 11.4. No fever. Likely 2/2 to the Right sided PNA. ABXs as above. Monitor trend Code(s): D72.829 - ELEVATED WHITE BLOOD CELL COUNT, UNSPECIFIED (3) Hyponatremia Current Visit: Yes Status: Acute Assessment & Plan: Na 133. Mildly low, will monitor while she is here. She is on thiazide, which can lower sodium. If significant, may have to hold. As mentioned, will monitor for now Code(s): E87.1 - HYPO-OSMOLALITY AND HYPONATREMIA (4) Pneumonia Current Visit: No Status: Acute Qualifiers: Pneumonia type: due to unspecified organism Laterality: right Lung location: lower lobe of lung Qualified Code(s): J18.9 - Pneumonia, unspecified organism Assessment & Plan: Rocephin and Azithromycin started, blood and sputum culture sent Code(s): J18.9 - PNEUMONIA, UNSPECIFIED ORGANISM (5) Respiratory distress Current Visit: No Status: Acute Assessment & Plan: O2 sat 90% on RA, improved to 96% on 2Ls NC O2. Will treat COPD/PNA, and wean down O2 as tolerated Code(s): R06.03 - ACUTE RESPIRATORY DISTRESS (6) HTN (hypertension) Current Visit: No Status: Chronic Qualifiers: Hypertension type: essential hypertension Assessment & Plan: Resumed home meds, monitor BP trend and make adjust as needed. She is no longer on HCTZ, only Amlodipine and Irbesartan Code(s): I10 - ESSENTIAL (PRIMARY) HYPERTENSION (7) Hyperlipidemia Current Visit: No Status: Chronic Assessment & Plan: Resumed home statin Code(s): E78.5 - HYPERLIPIDEMIA, UNSPECIFIED (8) Diabetes Current Visit: Yes Status: Acute Assessment & Plan: Resumed home meds, low dose SSI while on steroid for COPD exacerbation, accucheck ACHS, ADA diet Code(s): E11.9 - TYPE 2 DIABETES MELLITUS WITHOUT COMPLICATIONS Telemedicine Encounter - Telemedicine Encounter Telemedicine Encounter: The entirety of this encounter was performed via Telemedicine" The pt gave me verbal consent to have this telemedicine visit Pt is a FULL code. Lovenox for DVT prophylaxis
[2023-06-02] MEDS ORDERED: APRESOLINE 20 MG/ML INJ IV PRN (05:41)
[2023-06-02] MEDS: solu-MEDROL 80 MG, Sterile H2O 10 ml 2 ML IV SCH ×6 (06:16→21:29)
[2023-06-02] MEDS ORDERED: DUONEB 0.5-3 MG/3 ml Neb IH SCH (07:00)
[2023-06-02] MEDS: Glucophage 500 MG PO SCH ×2 (07:45→16:26)
[2023-06-02] MEDS: HUMALOG SQ PRN ×4 (07:45→22:23)
[2023-06-02] MEDS ORDERED: NON-FORMULARY ITEM (Metformin Hcl [Glucophage] 1,000 MG Tablet) PO SCH (08:00)
--- NOTE | 2023-06-02 08:37 | XRAY ---
Indication: Short of breath. Comparison: August 20, 2022 Portable apical lordotic chest unchanged again demonstrating right mid to lower lung subsegmental atelectasis/scarring, right base calcified pleural plaquing, focal eventration right hemidiaphragm, and tiny left lung calcified granulomas. Heart not enlarged. Bony thorax intact again with osteopenia and mild degenerative changes. Impression: Continued nonacute chest with chronic features.
[2023-06-02] MEDS: Coreg 3.125 MG PO SCH ×2 (09:40→21:29)
[2023-06-02] MEDS: ZOCOR 20MG PO SCH (09:40)
[2023-06-02] MEDS: LASIX 20 MG PO SCH (09:41)
[2023-06-02] MEDS: Avapro 150 MG PO SCH (09:41)
[2023-06-02] MEDS: ECOTRIN 81 MG PO SCH (09:41)
[2023-06-02] MEDS: Klor Con PO SCH (09:41)
[2023-06-02] MEDS: Pepcid 20 MG PO SCH ×2 (09:41→21:29)
[2023-06-02] MEDS: NORVASC 5 MG PO SCH (09:41)
[2023-06-02] MEDS: ENOXAPARIN SODIUM SQ SCH (09:42)
[2023-06-02] MEDS: Amaryl 2 MG PO SCH (09:42)
[2023-06-02] MEDS: Ditropan XL 5 MG PO SCH (09:42)
[2023-06-02] MEDS ORDERED: NON-FORMULARY ITEM (Amlodipine Besylate [Amlodipine Besylate] 10 MG Tablet) PO SCH (10:00)
[2023-06-02] MEDS ORDERED: NON-FORMULARY ITEM (Oxybutynin Chloride [Oxybutynin Chloride Er] 10 MG Tab.Er.24) PO SCH (10:00)
[2023-06-02] MEDS ORDERED: NON-FORMULARY ITEM (Simvastatin [Simvastatin] 40 MG Tablet) PO SCH (10:00)
[2023-06-02] MEDS ORDERED: NON-FORMULARY ITEM (Glimepiride [Glimepiride] 1 MG Tablet) PO SCH (10:00)
[2023-06-02] MEDS ORDERED: DUONEB 0.5-3 MG/3 ml Neb IH PRN (11:32)
[2023-06-02] MEDS: DUONEB 0.5-3 MG/3 ml Neb IH SCH ×2 (15:31→18:33)
[2023-06-02] MEDS: PULMICORT 0.5 MG/2 ML RESPULES IH SCH (18:33)
[2023-06-02] MEDS ORDERED: POTASSIUM CHLORIDE 20 mEq IN WATER 100ML 20 MEQ/100 ML BAG IV ONE (21:04)
[2023-06-02] MEDS ORDERED: Zithromax 500 MG/ 250 ML NaCl Premix 500 MG/250 ML IVPB IV SCH (22:00)
[2023-06-02] MEDS ORDERED: HYDROCHLOROTHIAZIDE PO SCH (22:00)
[2023-06-02] MEDS ORDERED: ROCEPHIN 1 Gm-D5w 50 ml Bag** 1 G/50 ML IVPB IV SCH (22:00)
[2023-06-02] MEDS ORDERED: IRBESARTAN PO SCH (22:00)
[2023-06-02] MEDS ORDERED: [UNRECOGNIZED DRUG - OTHER] PO SCH (22:00)
[2023-06-03 04:50] LABS: Absolute Neutrophil Ct (ANC) 7.86 x10^3/uL (1.4-6.9); BASOPHIL % 0.1 % (0.0-0.4); Basophil (Absolute #) 0.01 x10^3/uL (0-0.4); Eosinophil (Absolute #) 0 x10^3/uL (0-0.5); Hematocrit 38.5 % (35-47); Hemoglobin 12.5 g/dL (12.0-16.0); IMMATURE GRAN # 0.04 x10^3u/L (0.00-0.03); IMMATURE GRAN % 0.4 % (0.00-0.4); Lymphocyte (Absolute #) 0.89 x10^3/uL (1.0-4.6); Lymphocytes % 9.9 % (24.0-44.0); Mean Cell Volume 93.9 fL (78-100); Mean Corpuscular Hemoglobin 30.5 pg (26-32); Mean Corpuscular Hgb Concent. 32.5 g/dL (32-36); Monocyte (Absolute #) 0.15 x10^3/uL (0.0-1.3); Monocytes % 1.7 % (0.0-12.0); Neutrophil % 87.9 % (36.0-66.0); Platelet Count 373 x10^3/uL (150-450); Red Cell Distribution Width 12.5 % (11.5-14.0)
[2023-06-03 05:09] LABS: ALBUMIN 3.9 g/dL (3.5-5.0); ANION GAP 15.1 MEQ/L (5-15); BILIRUBIN,TOTAL 0.3 mg/dL (0.2-1.3); Calcium 9.1 mg/dL (8.4-10.2); Creatinine 1 0.67 mg/dL (0.52-1.04); EST GLOMERULAR FILTRATION RATE 91.7 ML/MIN; Potassium 4.2 mmol/L (3.5-5.1); Total Protein 6.7 g/dL (6.3-8.2)
[2023-06-03] MEDS: solu-MEDROL 80 MG, Sterile H2O 10 ml 2 ML IV SCH ×2 (05:24)
[2023-06-03] MEDS: PULMICORT 0.5 MG/2 ML RESPULES IH SCH (06:53)
[2023-06-03] MEDS: DUONEB 0.5-3 MG/3 ml Neb IH SCH (06:53)
[2023-06-03] MEDS ORDERED: Dextrose 5%-NS IV Solution 1000 ML 1,000 ML IV SCH (07:30)
[2023-06-03] MEDS: HUMALOG SQ PRN (07:54)
[2023-06-03] MEDS: Glucophage 500 MG PO SCH (07:54)
[2023-06-03] MEDS: Amaryl 2 MG PO SCH (07:54)
[2023-06-03 08:41] VITALS: BP 166/76; PULSE 82; RESP 18; TEMP 98
--- NOTE | 2023-06-03 09:46 | PCM.DS ---
Discharge Summary Date of Admission: 06/02/23 05:07 Date of Discharge: 06/03/23 Admitting Physician: AIDEN SHAHID DO Primary Care Provider: NIYA GONZALEZ DO <JEFFERY YODER - Last Filed: 06/03/23 09:37> Date of Admission: 06/02/23 05:07 Date of Discharge: 06/03/23 Admitting Physician: AIDEN SHAHID DO Primary Care Provider: NIYA GONZALEZ DO <GIOVANNI ROCA - Last Filed: 06/03/23 20:17> Allergies <JEFFERY YODER - Last Filed: 06/03/23 09:37> <GIOVANNI ROCA - Last Filed: 06/03/23 20:17> Allergies No Known Drug Allergies Allergy (Verified 06/02/23 02:34) Hospital Summary - Hospital Course Hospital Course: is a 73 year old female with history of DMII, HTN, HLP, and COPD came in with c/o flu-like symptoms, cough with yellow sputum, and wheezing with SOB since Friday. Her O2 sat was found to be 90% on RA, improved to 96% on 2L NC on admission. Admitted for COPD exacerbation. Now not requiring oxygen lung sounds clear. She is wanting to go home. Will continue antibiotics OP. She denies CP, SOB, abd pain, N/V/D. - Vitals & Intake/Output Vital Signs: Vital Signs Temperature 98.0 F 06/03/23 08:00 Pulse Rate 82 06/03/23 08:00 Respiratory Rate 18 06/03/23 08:00 Blood Pressure 166/76 06/03/23 08:00 O2 Sat by Pulse Oximetry 92 L 06/03/23 08:00 Intake & Output: Intake & Output 05/31/23 06/01/23 06/02/23 06/03/23 12:59 11:59 11:59 11:59 Intake Total 480 1320 Output Total 450 Balance 480 870 Weight 82.5 kg 82.5 kg - Lab Result Diagrams: 06/03/23 04:45 06/03/23 04:45 Lab Results-Last 24 Hrs: Lab Results-Last 24 Hours 06/02/23 06/02/23 06/02/23 Range/Units 11:12 11:35 15:48 WBC (4.0-10.5) x10^3/uL RBC (4.1-5.4) x10^6/uL Hgb (12.0-16.0) g/dL Hct (35-47) % MCV (78-100) fL MCH (26-32) pg MCHC (32-36) g/dL RDW (11.5-14.0) % Plt Count (150-450) x10^3/uL MPV (7.5-11.0) fL Gran % (36.0-66.0) % Immature Gran % (Auto) (0.00-0.4) % Nucleat RBC Rel Count (0.00-0.1) % Eos # (Auto) (0-0.5) x10^3/uL Immature Gran # (Auto) (0.00-0.03) x10^3u/L Absolute Lymphs (auto) (1.0-4.6) x10^3/uL Absolute Monos (auto) (0.0-1.3) x10^3/uL Absolute Nucleated RBC (0.00-0.01) x10^3u/L Lymphocytes % (24.0-44.0) % Monocytes % (0.0-12.0) % Eosinophils % (0.00-5.0) % Basophils % (0.0-0.4) % Absolute Granulocytes (1.4-6.9) x10^3/uL Basophils # (0-0.4) x10^3/uL Sodium (137-145) mmol/L Potassium (3.5-5.1) mmol/L Chloride (98-107) mmol/L Carbon Dioxide (22-30) mmol/L Anion Gap (5-15) MEQ/L BUN (7-17) mg/dL Creatinine (0.52-1.04) mg/dL Estimated GFR ML/MIN Glucose (74-106) mg/dL POC Glucometer 234 H 271 H (74 to 106) mg/dL Calcium (8.4-10.2) mg/dL Total Bilirubin (0.2-1.3) mg/dL AST (14-36) U/L ALT (0-35) U/L Alkaline Phosphatase (38-126) U/L Troponin I < 0.012 (0.000-0.034) ng/mL Serum Total Protein (6.3-8.2) g/dL Albumin (3.5-5.0) g/dL 06/02/23 06/03/23 06/03/23 Range/Units 21:21 04:45 04:45 WBC 9.0 (4.0-10.5) x10^3/uL RBC 4.10 (4.1-5.4) x10^6/uL Hgb 12.5 (12.0-16.0) g/dL Hct 38.5 (35-47) % MCV 93.9 (78-100) fL MCH 30.5 (26-32) pg MCHC 32.5 (32-36) g/dL RDW 12.5 (11.5-14.0) % Plt Count 373 (150-450) x10^3/uL MPV 10.0 (7.5-11.0) fL Gran % 87.9 H (36.0-66.0) % Immature Gran % (Auto) 0.4 (0.00-0.4) % Nucleat RBC Rel Count 0.0 (0.00-0.1) % Eos # (Auto) 0 (0-0.5) x10^3/uL Immature Gran # (Auto) 0.04 H (0.00-0.03) x10^3u/L Absolute Lymphs (auto) 0.89 L (1.0-4.6) x10^3/uL Absolute Monos (auto) 0.15 (0.0-1.3) x10^3/uL Absolute Nucleated RBC 0.00 (0.00-0.01) x10^3u/L Lymphocytes % 9.9 L (24.0-44.0) % Monocytes % 1.7 (0.0-12.0) % Eosinophils % 0.0 (0.00-5.0) % Basophils % 0.1 (0.0-0.4) % Absolute Granulocytes 7.86 H (1.4-6.9) x10^3/uL Basophils # 0.01 (0-0.4) x10^3/uL Sodium 131 L (137-145) mmol/L Potassium 4.2 (3.5-5.1) mmol/L Chloride 97 L (98-107) mmol/L Carbon Dioxide 23 (22-30) mmol/L Anion Gap 15.1 H (5-15) MEQ/L BUN 14 (7-17) mg/dL Creatinine 0.67 (0.52-1.04) mg/dL Estimated GFR 91.7 ML/MIN Glucose 229 H (74-106) mg/dL POC Glucometer 262 H (74 to 106) mg/dL Calcium 9.1 (8.4-10.2) mg/dL Total Bilirubin 0.30 (0.2-1.3) mg/dL AST 17 (14-36) U/L ALT 18 (0-35) U/L Alkaline Phosphatase 68 (38-126) U/L Troponin I (0.000-0.034) ng/mL Serum Total Protein 6.7 (6.3-8.2) g/dL Albumin 3.9 (3.5-5.0) g/dL 06/03/23 Range/Units 06:36 WBC (4.0-10.5) x10^3/uL RBC (4.1-5.4) x10^6/uL Hgb (12.0-16.0) g/dL Hct (35-47) % MCV (78-100) fL MCH (26-32) pg MCHC (32-36) g/dL RDW (11.5-14.0) % Plt Count (150-450) x10^3/uL MPV (7.5-11.0) fL Gran % (36.0-66.0) % Immature Gran % (Auto) (0.00-0.4) % Nucleat RBC Rel Count (0.00-0.1) % Eos # (Auto) (0-0.5) x10^3/uL Immature Gran # (Auto) (0.00-0.03) x10^3u/L Absolute Lymphs (auto) (1.0-4.6) x10^3/uL Absolute Monos (auto) (0.0-1.3) x10^3/uL Absolute Nucleated RBC (0.00-0.01) x10^3u/L Lymphocytes % (24.0-44.0) % Monocytes % (0.0-12.0) % Eosinophils % (0.00-5.0) % Basophils % (0.0-0.4) % Absolute Granulocytes (1.4-6.9) x10^3/uL Basophils # (0-0.4) x10^3/uL Sodium (137-145) mmol/L Potassium (3.5-5.1) mmol/L Chloride (98-107) mmol/L Carbon Dioxide (22-30) mmol/L Anion Gap (5-15) MEQ/L BUN (7-17) mg/dL Creatinine (0.52-1.04) mg/dL Estimated GFR ML/MIN Glucose (74-106) mg/dL POC Glucometer 248 H (74 to 106) mg/dL Calcium (8.4-10.2) mg/dL Total Bilirubin (0.2-1.3) mg/dL AST (14-36) U/L ALT (0-35) U/L Alkaline Phosphatase (38-126) U/L Troponin I (0.000-0.034) ng/mL Serum Total Protein (6.3-8.2) g/dL Albumin (3.5-5.0) g/dL Micro Results-Entire Visit: Microbiology 06/02/23 04:25 Blood Culture - Preliminary Blood 06/02/23 04:25 Blood Culture - Preliminary Blood Accuchecks Date 06/03/23 Date 06/02/23 Date 06/02/23 Date 06/02/23 Time 07:13 Time 15:56 Time 11:22 - Radiology Exams Ordered Rad Exams-Entire Visit: Radiology Procedures Category Date Time Status CHEST 1 VIEW (PORTABLE) Stat Exams 06/02/23 02:56 Completed - Procedures and Test Procedures and Tests throughout Hospitalization: Therapy Orders & Screens 06/02/23 02:56 Respiratory Therapy Assessment DAILY Comment: 06/02/23 05:07 Oxygen Nasal Cannula 2 lpm Comment: 06/02/23 05:35 Respiratory Therapy Consult ONCE Comment: Reason For Exam: 06/03/23 07:08 Flutter Therapy UD Comment: Diagnosis: COPD exacerbation <JEFFERY YODER - Last Filed: 06/03/23 09:37> - Vitals & Intake/Output Vital Signs: Vital Signs Temperature 98.0 F 06/03/23 08:00 Pulse Rate 82 06/03/23 08:00 Respiratory Rate 18 06/03/23 08:00 Blood Pressure 166/76 06/03/23 08:00 O2 Sat by Pulse Oximetry 96 06/03/23 09:28 Intake & Output: Intake & Output 06/01/23 06/02/23 06/03/23 06/04/23 11:59 11:59 11:59 11:59 Intake Total 480 1320 Output Total 450 Balance 480 870 Weight 82.5 kg 82.5 kg - Lab Result Diagrams: 06/03/23 04:45 06/03/23 04:45 Lab Results-Last 24 Hrs: Lab Results-Last 24 Hours 06/02/23 06/03/23 06/03/23 Range/Units 21:21 04:45 04:45 WBC 9.0 (4.0-10.5) x10^3/uL RBC 4.10 (4.1-5.4) x10^6/uL Hgb 12.5 (12.0-16.0) g/dL Hct 38.5 (35-47) % MCV 93.9 (78-100) fL MCH 30.5 (26-32) pg MCHC 32.5 (32-36) g/dL RDW 12.5 (11.5-14.0) % Plt Count 373 (150-450) x10^3/uL MPV 10.0 (7.5-11.0) fL Gran % 87.9 H (36.0-66.0) % Immature Gran % (Auto) 0.4 (0.00-0.4) % Nucleat RBC Rel Count 0.0 (0.00-0.1) % Eos # (Auto) 0 (0-0.5) x10^3/uL Immature Gran # (Auto) 0.04 H (0.00-0.03) x10^3u/L Absolute Lymphs (auto) 0.89 L (1.0-4.6) x10^3/uL Absolute Monos (auto) 0.15 (0.0-1.3) x10^3/uL Absolute Nucleated RBC 0.00 (0.00-0.01) x10^3u/L Lymphocytes % 9.9 L (24.0-44.0) % Monocytes % 1.7 (0.0-12.0) % Eosinophils % 0.0 (0.00-5.0) % Basophils % 0.1 (0.0-0.4) % Absolute Granulocytes 7.86 H (1.4-6.9) x10^3/uL Basophils # 0.01 (0-0.4) x10^3/uL Sodium 131 L (137-145) mmol/L Potassium 4.2 (3.5-5.1) mmol/L Chloride 97 L (98-107) mmol/L Carbon Dioxide 23 (22-30) mmol/L Anion Gap 15.1 H (5-15) MEQ/L BUN 14 (7-17) mg/dL Creatinine 0.67 (0.52-1.04) mg/dL Estimated GFR 91.7 ML/MIN Glucose 229 H (74-106) mg/dL POC Glucometer 262 H (74 to 106) mg/dL Calcium 9.1 (8.4-10.2) mg/dL Total Bilirubin 0.30 (0.2-1.3) mg/dL AST 17 (14-36) U/L ALT 18 (0-35) U/L Alkaline Phosphatase 68 (38-126) U/L Serum Total Protein 6.7 (6.3-8.2) g/dL Albumin 3.9 (3.5-5.0) g/dL 06/03/23 Range/Units 06:36 WBC (4.0-10.5) x10^3/uL RBC (4.1-5.4) x10^6/uL Hgb (12.0-16.0) g/dL Hct (35-47) % MCV (78-100) fL MCH (26-32) pg MCHC (32-36) g/dL RDW (11.5-14.0) % Plt Count (150-450) x10^3/uL MPV (7.5-11.0) fL Gran % (36.0-66.0) % Immature Gran % (Auto) (0.00-0.4) % Nucleat RBC Rel Count (0.00-0.1) % Eos # (Auto) (0-0.5) x10^3/uL Immature Gran # (Auto) (0.00-0.03) x10^3u/L Absolute Lymphs (auto) (1.0-4.6) x10^3/uL Absolute Monos (auto) (0.0-1.3) x10^3/uL Absolute Nucleated RBC (0.00-0.01) x10^3u/L Lymphocytes % (24.0-44.0) % Monocytes % (0.0-12.0) % Eosinophils % (0.00-5.0) % Basophils % (0.0-0.4) % Absolute Granulocytes (1.4-6.9) x10^3/uL Basophils # (0-0.4) x10^3/uL Sodium (137-145) mmol/L Potassium (3.5-5.1) mmol/L Chloride (98-107) mmol/L Carbon Dioxide (22-30) mmol/L Anion Gap (5-15) MEQ/L BUN (7-17) mg/dL Creatinine (0.52-1.04) mg/dL Estimated GFR ML/MIN Glucose (74-106) mg/dL POC Glucometer 248 H (74 to 106) mg/dL Calcium (8.4-10.2) mg/dL Total Bilirubin (0.2-1.3) mg/dL AST (14-36) U/L ALT (0-35) U/L Alkaline Phosphatase (38-126) U/L Serum Total Protein (6.3-8.2) g/dL Albumin (3.5-5.0) g/dL Micro Results-Entire Visit: Microbiology 06/02/23 04:25 Blood Culture - Preliminary Blood 06/02/23 04:25 Blood Culture - Preliminary Blood Accuchecks Date 06/03/23 Date 06/02/23 Time 07:13 - Radiology Exams Ordered Rad Exams-Entire Visit: Radiology Procedures Category Date Time Status CHEST 1 VIEW (PORTABLE) Stat Exams 06/02/23 02:56 Completed - Procedures and Test Procedures and Tests throughout Hospitalization: Therapy Orders & Screens 06/02/23 02:56 Respiratory Therapy Assessment DAILY Comment: 06/02/23 05:07 Oxygen Nasal Cannula 2 lpm Comment: 06/02/23 05:35 Respiratory Therapy Consult ONCE Comment: Reason For Exam: 06/03/23 07:08 Flutter Therapy UD Comment: Diagnosis: COPD exacerbation <GIOVANNI ROCA - Last Filed: 06/03/23 20:17> Discharge Exam General Appearance: no apparent distress, alert, obese Neurologic Exam: alert, oriented x 3, cooperative, normal mood/affect, nml cerebellar function, sensation nml, No motor deficits Eye Exam: PERRL, EOMI, eyes nml inspection Ears, Nose, Throat Exam: normal ENT inspection, pharynx normal, moist mucous membranes Neck Exam: normal inspection, non-tender, supple, full range of motion Respiratory Exam: normal breath sounds, lungs clear, No respiratory distress Cardiovascular Exam: regular rate/rhythm, normal heart sounds Gastrointestinal/Abdomen Exam: soft, No tenderness, No mass Pelvic Exam: deferred Rectal Exam: deferred Back Exam: normal inspection, normal range of motion, No CVA tenderness, No vertebral tenderness Extremity Exam: normal inspection, normal range of motion Skin Exam: normal color, warm, dry <JEFFERY YODER - Last Filed: 06/03/23 09:37> Final Diagnosis/Problem List - Final Discharge Diagnosis/Problem (1) Acute exacerbation of chronic obstructive pulmonary disease (COPD) Status: Acute Code(s): J44.1 - CHRONIC OBSTRUCTIVE PULMONARY DISEASE W (ACUTE) EXACERBATION (2) Diabetes Status: Acute Code(s): E11.9 - TYPE 2 DIABETES MELLITUS WITHOUT COMPLICATIONS (3) Hyponatremia Status: Acute Code(s): E87.1 - HYPO-OSMOLALITY AND HYPONATREMIA (4) Leukocytosis Status: Acute Code(s): D72.829 - ELEVATED WHITE BLOOD CELL COUNT, UNSPECIFIED (5) Pneumonia Status: Acute Code(s): J18.9 - PNEUMONIA, UNSPECIFIED ORGANISM (6) Respiratory distress Status: Acute Code(s): R06.03 - ACUTE RESPIRATORY DISTRESS (7) HTN (hypertension) Status: Chronic Code(s): I10 - ESSENTIAL (PRIMARY) HYPERTENSION (8) Hyperlipidemia Status: Chronic Assessment & Plan: (1) Acute exacerbation of chronic obstructive pulmonary disease (COPD) Current Visit: Yes Status: Acute Assessment & Plan: CAme in SOB, wheezing, O2 sat 90%. CXR shows right air-space opacity. Starting solumedrol 80mg every 8hrs, Rocephin 1gm and Azithromycin 500mg daily, albuterol nebs/updraft every 6 hrs and as needed, O2 protocol to keep O2 sat > 92%. Flu and covid negative 06/03 - at baseline RA - will d/c with antibiotics Code(s): J44.1 - CHRONIC OBSTRUCTIVE PULMONARY DISEASE W (ACUTE) EXACERBATION (2) Leukocytosis Current Visit: Yes Status: Acute Assessment & Plan: WBC mildly elevated at 11.4. No fever. Likely 2/2 to the Right sided PNA. ABXs as above. Monitor trend 06/03 - WBC 9.0 Code(s): D72.829 - ELEVATED WHITE BLOOD CELL COUNT, UNSPECIFIED (3) Hyponatremia Current Visit: Yes Status: Acute Assessment & Plan: Na 133. Mildly low, will monitor while she is here. She is on thiazide, which can lower sodium. If significant, may have to hold. As mentioned, will monitor for now Code(s): E87.1 - HYPO-OSMOLALITY AND HYPONATREMIA (4) Pneumonia Current Visit: No Status: Acute Qualifiers: Pneumonia type: due to unspecified organism Laterality: right Lung location: lower lobe of lung Qualified Code(s): J18.9 - Pneumonia, unspecified organism Assessment & Plan: Rocephin and Azithromycin started, blood and sputum culture sent 06/03 - Not pneumonia per radiology results- COPD exacerbation Code(s): J18.9 - PNEUMONIA, UNSPECIFIED ORGANISM (5) Respiratory distress Current Visit: No Status: Acute Assessment & Plan: O2 sat 90% on RA, improved to 96% on 2Ls NC O2. Will treat COPD/PNA, and wean down O2 as tolerated 06/03 - on RA Code(s): R06.03 - ACUTE RESPIRATORY DISTRESS (6) HTN (hypertension) Current Visit: No Status: Chronic Qualifiers: Hypertension type: essential hypertension Assessment & Plan: -Resumed home meds, monitor BP trend and make adjust as needed. She is no longer on HCTZ, only Amlodipine and Irbesartan Code(s): I10 - ESSENTIAL (PRIMARY) HYPERTENSION (7) Hyperlipidemia Current Visit: No Status: Chronic Assessment & Plan: -Resumed home statin Code(s): E78.5 - HYPERLIPIDEMIA, UNSPECIFIED (8) Diabetes Current Visit: Yes Status: Acute Assessment & Plan: -Resumed home meds, low dose SSI while on steroid for COPD exacerbation, accucheck ACHS, ADA diet Code(s): E11.9 - TYPE 2 DIABETES MELLITUS WITHOUT COMPLICATIONS Code(s): E78.5 - HYPERLIPIDEMIA, UNSPECIFIED <JEFFERY YODER - Last Filed: 06/03/23 09:37> - Discharge Discharge Date: 06/03/23 <JEFFERY YODER - Last Filed: 06/03/23 09:37> <GIOVANNI ROCA - Last Filed: 06/03/23 20:17> - Discharge Disposition: Home, Self-Care Condition: Stable Prescriptions: New Azithromycin [Azithromycin 250 mg Pack] 250 mg PO UD #6 tablet Continue Simvastatin 40 mg PO DAILY Metformin HCl [Glucophage] 1,000 mg PO BIDWMEALS Amlodipine Besylate 10 mg PO DAILY Carvedilol 3.125 mg [Coreg 3.125 MG] 3.125 mg PO BID Famotidine 20 mg PO BID Aspirin EC 81 mg [Ecotrin 81 mg] 81 mg PO DAILY Oxybutynin Chloride [Oxybutynin Chloride ER] 10 mg PO DAILY Omeprazole 20 mg PO DAILY Potassium Chloride [Klor-Con 10] 10 meq PO DAILY Furosemide [Lasix] 20 mg PO DAILY Glimepiride 1 mg PO DAILY Albuterol Common Canister [Ventolin Common Canister] 2 puff IH Q4-6HPRN PRN PRN Reason: Shortness Of Breath Irbesartan 300 mg PO QHS Instructions: Chronic Obstructive Pulmonary Disease (COPD) (DC) Follow up with: NIYA GONZALEZ DO [Primary Care Provider] - 06/11/23 2:30 pm SANDY Encounter - SANDY Encounter Attestation SANDY Encounter Attestation: "IhavepersonallyseenandexANDRIY Lara andhavediscussed pertinent aspects of their care with Jeffery Vital agree with the history, ph ysical exam (any modifications based on my personal exam will be noted below), assessment, and plan as outlined in original note. Please see immediately below for my summary of findings and additional assessment and plan along with any meaningful corrections/explanations to the Subjective/Objective portions of the ASNDY note will be noted." My portion of the encounter took place via telemedicine. -COPD exacerbation, now improved. Okay to DC home. <GIOVANNI ROCA - Last Filed: 06/03/23 20:17>
[2023-06-03 10:00] VITALS: O2SAT 96
[2023-06-03] MEDS: LASIX 20 MG PO SCH (10:26)
[2023-06-03] MEDS: Ditropan XL 5 MG PO SCH (10:26)
[2023-06-03] MEDS: Avapro 150 MG PO SCH (10:26)
[2023-06-03] MEDS: Coreg 3.125 MG PO SCH (10:26)
[2023-06-03] MEDS: Klor Con PO SCH (10:26)
[2023-06-03] MEDS: NORVASC 5 MG PO SCH (10:26)
[2023-06-03] MEDS: Pepcid 20 MG PO SCH (10:26)
[2023-06-03] MEDS: ZOCOR 20MG PO SCH (10:26)
[2023-06-03] MEDS: ECOTRIN 81 MG PO SCH (10:26)
[2023-06-03] MEDS: ENOXAPARIN SODIUM SQ SCH (10:27)
[2023-06-03] MEDS ORDERED: FLUZONE HIGH-DOSE QUAD 2023-24 IM ONE (10:28)
== END 2023-06-03 10:57 | disposition home or self-care (01) ==
LOC: ED 02:31 → MED SURG 05:07
PROVIDERS: ADMIT Internal Medicine; ATTEND Internal Medicine
DX: J44.1 Chronic obstructive pulmonary disease with (acute) exacerbation (principal); E11.9 Type 2 diabetes mellitus without complications; I10 Essential (primary) hypertension; E78.5 Hyperlipidemia, unspecified; E87.1 Hypo-osmolality and hyponatremia; J18.9 Pneumonia, unspecified organism; R06.03 Acute respiratory distress; D72.829 Elevated white blood cell count, unspecified; Z79.899 Other long term (current) drug therapy; Z20.828 Contact with and (suspected) exposure to other viral communicable diseases
CPT/HCPCS: 0241U; 36415; 71045; 80053; 82947; 83605; 83735; 83880; 84484; 85025; 87040; 90662; 93268; 94640; 94667; 94762; 96365; 96367; 96374; 99284; G0008; J0360; J0456; J0696; J1650; J1817; J2930; Q3014; A9270-GY; G0378